=== PATIENT | male | born 1975 | race American Indian/Alaskan Native ===

== ENCOUNTER 2018-05-23 05:32 | Inpatient (IN) | payer MEDICAID ==
[2018-05-23 07:50] LABS: Calcium 8.8 mg/dL (8.4-10.2)
--- NOTE | 2018-05-23 07:54 | Emergency Department Report ---
ED General Adult HPI - General Chief complaint: Upper Respiratory Infection Stated complaint: URI/FLU Time Seen by Provider: 05/23/18 07:47 Source: patient, RN notes reviewed, old records reviewed Mode of arrival: Ambulatory Limitations: No Limitations - History of Present Illness Initial comments: This is a 42-year-old gentleman. The patient has a history of end-stage renal disease on dialysis, and was last dialyzed on Sunday. He also has a history of HIV and apparently is on highly active antiretroviral therapy. The patient is a poor historian. He knows that his personal physicians are on [place], but can't recall their name specifically. He presents to the ER today with a complaint of cough, mucus production, post tussive hemoptysis, shortness of breath, generalized weakness, malaise, fatigue, and fever at home. He denies body aches, and is not sure if he had a flu shot this year. His symptoms are constant for the past and so, they worsen with physical exertion, decreased with rest. -: Gradual Consistency: intermittent Improves with: rest Worsens with: movement Associated Symptoms: cough, loss of appetite, malaise, shortness of breath, weakness. denies: confusion, chest pain, diaphoresis, fever/chills, headaches, nausea/vomiting, rash, seizure, syncope - Related Data Home Medications Medication Instructions Recorded Confirmed Last Taken Abacavir [Ziagen TAB] 600 mg PO DAILY 04/24/18 05/23/18 Unknown Dolutegravir Sodium [Tivicay] 50 mg PO QDAY 04/24/18 05/23/18 Unknown lamiVUDine [Lamivudine] 75 mg PO QDAY 04/24/18 05/23/18 Unknown Previous Rx's Medication Instructions Recorded Last Taken Type Hydralazine HCl 100 mg PO Q8H #180 tablet 03/28/18 Unknown Rx Lisinopril [Zestril TAB] 40 mg PO QDAY #90 tablet 03/28/18 Unknown Rx NIFEdipine XL [Procardia Xl] 60 mg PO Q12HR #60 tablet 03/28/18 Unknown Rx QUEtiapine [SEROquel] 50 mg PO QHS #60 tablet 03/28/18 Unknown Rx Allergies Allergy/AdvReac Type Severity Reaction Status Date / Time No Known Allergies Allergy Verified 03/05/18 01:31 ED Review of Systems ROS: Stated complaint: URI/FLU Other details as noted in HPI Constitutional: malaise. denies: fever Eyes: denies: eye discharge ENT: congestion Respiratory: cough, wheezing Cardiovascular: denies: syncope Gastrointestinal: denies: vomiting Genitourinary: denies: dysuria Musculoskeletal: denies: arthralgia, myalgia Skin: denies: lesions Neurological: weakness Psychiatric: denies: anxiety ED Past Medical Hx - Past Medical History Previous Medical History?: Yes Hx Hypertension: Yes Hx Congestive Heart Failure: Yes Hx Diabetes: No Hx Renal Disease: Yes (HD Tues, Thurs, Sat HD) Hx Asthma: No Hx COPD: No Hx HIV: Yes Additional medical history: Dialysis access Left chest wall, - Surgical History Additional Surgical History: Dialysis Access Left Chest Wall, Fistula to left arm(not working) - Social History Smoking Status: Current Every Day Smoker Substance Use Type: Marijuana - Medications Home Medications: Home Medications Medication Instructions Recorded Confirmed Last Taken Type Hydralazine HCl 100 mg PO Q8H #180 tablet 03/28/18 05/23/18 Unknown Rx Lisinopril [Zestril TAB] 40 mg PO QDAY #90 tablet 03/28/18 05/23/18 Unknown Rx NIFEdipine XL [Procardia Xl] 60 mg PO Q12HR #60 tablet 03/28/18 05/23/18 Unknown Rx QUEtiapine [SEROquel] 50 mg PO QHS #60 tablet 03/28/18 05/23/18 Unknown Rx Abacavir [Ziagen TAB] 600 mg PO DAILY 04/24/18 05/23/18 Unknown History Dolutegravir Sodium [Tivicay] 50 mg PO QDAY 04/24/18 05/23/18 Unknown History lamiVUDine [Lamivudine] 75 mg PO QDAY 04/24/18 05/23/18 Unknown History ED Physical Exam - General Limitations: No Limitations General appearance: alert, in no apparent distress - Head Head exam: Present: atraumatic, normocephalic - Eye Eye exam: Present: normal appearance, EOMI. Absent: nystagmus - ENT ENT exam: Present: normal exam, normal orophraynx, mucous membranes moist, normal external ear exam - Neck Neck exam: Present: normal inspection, full ROM, other (5 cm of jugular venous distention noted bilaterally). Absent: tenderness, meningismus - Respiratory Respiratory exam: Present: rales, rhonchi, other (he was a left-sided hemodialysis access catheter, with no redness, pus or streaking). Absent: respiratory distress - Cardiovascular Cardiovascular Exam: Present: regular rate, normal rhythm, normal heart sounds. Absent: bradycardia, tachycardia, irregular rhythm, systolic murmur, diastolic murmur, rubs, gallop - GI/Abdominal GI/Abdominal exam: Present: soft. Absent: distended, tenderness, guarding, rebound, rigid, pulsatile mass - Rectal Rectal exam: Present: deferred - Extremities Exam Extremities exam: Present: normal inspection, full ROM, other (2+ pulses noted in the bilateral upper, lower extremities. Compartments soft. No long bony tenderness. The pelvis is stable.). Absent: joint swelling, calf tenderness - Back Exam Back exam: Present: normal inspection, full ROM. Absent: tenderness, CVA tenderness (R), paraspinal tenderness, vertebral tenderness - Neurological Exam Neurological exam: Present: alert, oriented X3, other (Extraocular movements intact. Tongue midline. No facial droop. Facial sensation intact to light touch in the V1, V2, V3 distribution bilaterally. 5 and 5 strength in 4 extremities.. Sensation is intact to light touch in 4 extremities.). Absent: motor sensory deficit - Psychiatric Psychiatric exam: Present: normal affect, normal mood - Skin Skin exam: Present: warm, dry, intact, normal color. Absent: rash ED Course Vital Signs 05/23/18 05:51 Temperature 97.8 F Pulse Rate 94 H Respiratory 20 Rate Blood Pressure 198/137 O2 Sat by Pulse 97 Oximetry ED Medical Decision Making - Lab Data Result diagrams: 05/23/18 08:01 05/23/18 07:17 Vital Signs 05/23/18 05:51 Temperature 97.8 F Pulse Rate 94 H Respiratory 20 Rate Blood Pressure 198/137 O2 Sat by Pulse 97 Oximetry Lab Results 05/23/18 Range/Units 07:17 Sodium 142 (137-145) mmol/L Potassium 4.7 (3.6-5.0) mmol/L Chloride 99.2 (98-107) mmol/L Carbon Dioxide 22 (22-30) mmol/L Anion Gap 26 mmol/L BUN 75 H (9-20) mg/dL Creatinine 15.3 H (0.8-1.5) mg/dL Estimated GFR 4 ml/min BUN/Creatinine Ratio 5 % Glucose 93 (75-100) mg/dL Calcium 8.8 (8.4-10.2) mg/dL - EKG Data -: EKG Interpreted by Me EKG shows normal: sinus rhythm Rate: normal - EKG Data When compared to previous EKG there are: no significant change Interpretation: unchanged when compared t 05/23/18 09:23 Sinus, 91 beats minute, normal axis, QTC prolonged, atrial enlargement, left ventricular hypertrophy, abnormal EKG, not consistent with ST elevation myocardial infarction, appears unchanged from prior EKG from April 2018 05/23/18 09:24 - Radiology Data Radiology results: report reviewed, image reviewed X-ray of the chest shows pulmonary vascular congestion, questionable congestive heart failure, no obvious infiltrates, left-sided hemodialysis access catheter noted. - Medical Decision Making Differential diagnosis, including not limited to: Bronchitis, bronchiectasis, pneumonia, congestive heart failure, fluid overload, hypertensive urgency, azotemia, uremia Assessment and plan: 42-year-old gentleman, HIV positive, end-stage renal disease, on dialysis, was last dialyzed on Sunday, presenting today with clinical evidence of fluid overload, including hypertension, JVD, crackles, rales, x-ray of the chest suggesting pulmonary vascular congestion, congestive heart failure, and laboratory evidence of azotemia and uremia. Clinically suspect viral syndrome and fluid overload, is afebrile in the emergency room, however given reported history of fever, we will cover empirically with ceftriaxone and azithromycin. Clinically do not suspect influenza-like illness or influenza at this time, but given that patient will require admission to the medical service, we will send a rapid flu screen to determine need for inpatient isolation precautions. At this point in time, do not clinically suspect influenza-like illness, and therefore we will withhold antiviral therapy at this time. We contacted nephrology on-call, Dr. Silva, who is going to arrange dialysis, and the hospital physician, Dr. Barron, is going to admit the patient to the medical s ervice. Critical care attestation.: If time is entered above; I have spent that time in minutes in the direct care of this critically ill patient, excluding procedure time. ED Disposition Clinical Impression: ESRD (end stage renal disease), Pulmonary edema, Dyspnea, Uncontrolled hypertension Disposition: OP ADMIT IP TO THIS HOSP Is pt being admited?: Yes Condition: Good Instructions: Pulmonary Edema (ED), Hypertension (ED) Referrals: PRIMARY CARE, [Primary Care Provider] - 3-5 Days
--- NOTE | 2018-05-23 07:56 | XRay Report ---
FINAL REPORT EXAM: XR CHEST ROUTINE 2V HISTORY: productive cough TECHNIQUE: PA and lateral views of the chest were submitted and compared to the study of 03/27/2018. FINDINGS: The heart is [id number] enlarged. The lungs are congested with diffuse interstitial prominenc e. There is thickening of the fissures. Pleural fluid is not seen. There is a double lumen venous cat heter with the tip in the right atrium. The skeletal structures do not show any acute changes. IMPRESSION: Cardiomegaly with pulmonary edema pattern. No localized infiltrates or effusions.
[2018-05-23] MEDS ORDERED: LEVAQUIN 500MG/100ML 500 MG/100 ML BAG IV ONE (07:57)
[2018-05-23] MEDS ORDERED: APRESOLINE IV ONE (07:57)
[2018-05-23] MEDS ORDERED: ZITHROMAX PO ONE (08:05)
[2018-05-23 08:17] LABS: Hematocrit 26.9 % (35.5-45.6); Hemoglobin 8.7 gm/dl (11.8-15.2); Mean Corpuscular HGB Conc 32 % (32-34); Mean Corpuscular Volume 82 fl (84-94); Platelet Count 149 K/mm3 (140-440); Red Blood Count 3.29 M/mm3 (3.65-5.03)
[2018-05-23 08:21] LABS: Red Cell Distribution Width 20.7 % (13.2-15.2)
[2018-05-23] MEDS ORDERED: ROCEPHIN/NS 1 GM/50 ML 1 GM/50 ML BAG IV ONE (08:30)
[2018-05-23 08:31] LABS: INR 0.92 (0.87-1.13)
[2018-05-23 08:32] LABS: Partial Thromboplastin Time 23.5 Sec. (24.2-36.6)
[2018-05-23] MEDS ORDERED: HYDRALAZINE HCL 100 MG PO SCH (09:00)
[2018-05-23] MEDS ORDERED: TYLENOL PO PRN (09:02)
[2018-05-23] MEDS ORDERED: ZOFRAN IV PRN (09:02)
[2018-05-23] MEDS ORDERED: SODIUM CHLORIDE FLUSH SYRINGE 10 ML IV PRN (09:02)
[2018-05-23] MEDS ORDERED: NON-FORMULARY (Dolutegravir Sodium [Tivicay] 50 MG) PO SCH (10:00)
[2018-05-23 10:18] LABS: Amphetamine Screen,Urine PRESUMPTIVE NEGATIVE; Benzodiazepines Screen,Urine PRESUMPTIVE NEGATIVE; Cannabinoid Screen,Urine PRESUMPTIVE NEGATIVE; Methadone Screen,Urine PRESUMPTIVE NEGATIVE; Opiate Screen,Urine PRESUMPTIVE NEGATIVE
[2018-05-23] MEDS ORDERED: NACL 0.9 (PRIMING MACHINE ONLY DIALYSIS) MC ONE (10:35)
[2018-05-23 10:42] LABS: Cocaine Screen,Urine PRESUMPTIVE POSITIVE
[2018-05-23] MEDS ORDERED: PROVENTIL IH PRN (11:00)
[2018-05-23 11:01] LABS: Anisocytosis 1+; Basophils % (Manual) 0 % (0.0-1.8); Hypochromasia 1+; Target Cells Few; Total Cells Counted 100
[2018-05-23 11:02] LABS: Platelet Estimate Consistent w Auto
--- NOTE | 2018-05-23 11:11 | Consultation ---
History of Present Illness - Reason for Consult Consult date: 05/23/18 end stage renal disease - History of Present Illness the patient is a 42 year old amle with ESRD on HD for the last 4 year every TTS, last treatment was Sunday, he skipped his last HD treatment because he was feeling sick with SOB and cough, in the ED, CXR was + for pulm edema and renal consult was requested for HD management Past History Past Medical History: ESRD, hypertension Medications and Allergies Allergies Allergy/AdvReac Type Severity Reaction Status Date / Time No Known Allergies Allergy Verified 03/05/18 01:31 Home Medications Medication Instructions Recorded Confirmed Last Taken Type Hydralazine HCl 100 mg PO Q8H #180 tablet 03/28/18 05/23/18 Unknown Rx Lisinopril [Zestril TAB] 40 mg PO QDAY #90 tablet 03/28/18 05/23/18 Unknown Rx NIFEdipine XL [Procardia Xl] 60 mg PO Q12HR #60 tablet 03/28/18 05/23/18 Unknown Rx QUEtiapine [SEROquel] 50 mg PO QHS #60 tablet 03/28/18 05/23/18 Unknown Rx Abacavir [Ziagen TAB] 600 mg PO DAILY 04/24/18 05/23/18 Unknown History Dolutegravir Sodium [Tivicay] 50 mg PO QDAY 04/24/18 05/23/18 Unknown History lamiVUDine [Lamivudine] 75 mg PO QDAY 04/24/18 05/23/18 Unknown History Active Meds: Active Medications Abacavir Sulfate (Ziagen) 600 mg PO DAILY [facility] Acetaminophen (Tylenol) 650 mg PO Q4H PRN PRN Reason: Pain MILD(1-3)/Fever >100.5/BURGESS Albuterol (Proventil) 2.5 mg IH Q3HRT PRN PRN Reason: Shortness Of Breath Heparin Sodium (Porcine) (Heparin) 5,000 unit SUB-Q Q12HR [facility] Hydralazine HCl (Apresoline) 100 mg PO Q8HR [facility] Lamivudine (Epivir) 75 mg PO QDAY [facility] Lisinopril (Zestril) 40 mg PO QDAY [facility] Miscellaneous Medication (Dolutegravir Sodium [Tivicay]) 50 mg PO QDAY [facility] Morphine Sulfate (Morphine) 2 mg IV Q4H PRN PRN Reason: Pain, Moderate (4-6) Nifedipine (Procardia Xl) 60 mg PO Q12HR [facility] Ondansetron HCl (Zofran) 4 mg IV Q4H PRN PRN Reason: Nausea And Vomiting Quetiapine Fumarate (Seroquel) 50 mg PO QHS [facility] Sodium Chloride (Sodium Chloride Flush Syringe 10 Ml) 10 ml IV BID [facility] Sodium Chloride (Sodium Chloride Flush Syringe 10 Ml) 10 ml IV PRN PRN PRN Reason: LINE FLUSH Review of Systems All systems: negative (SOB, cough) Exam - Vital Signs Vital signs: Vital Signs Temp Pulse Resp BP Pulse Ox 97.8 F 94 H 20 198/137 97 05/23/18 05:51 05/23/18 05:51 05/23/18 05:51 05/23/18 05:51 05/23/18 05:51 - General Appearance General appearance: well-developed, well-nourished, appears stated age EENT: ATNC, PERRL, mucous membranes moist Neck: Present: neck supple Respiratory: Ronchi, Decreased Breath Sounds Heart: regular, S1S2 Gastrointestinal: Present: normoactive bowel sounds. Absent: tenderness, distended Integumentary: no rash, warm and dry Neurologic: no focal deficit, no asterixis, alert and oriented x3 Musculoskeletal: Present: other (trace pitting edema in BLE) Psychiatric: mood/affect appropriate, cooperative Results - Lab Results 05/23/18 08:01 05/23/18 07:17 Most recent lab results Calcium 8.8 mg/dL (8.4-10.2) 05/23/18 07:17 Magnesium 2.40 mg/dL (1.7-2.3) H 05/23/18 08:01 Assessment and Plan ESRD on HD hypoxic respiratory failure secondary to pulm edema, non cardiac anemia in CKD HTN - HD today for clearance and volume removal - HD ordered again for tomorrow - will dialysis needs daily - strict I&O - daily weight - renal diet - renally dose meds
[2018-05-23] MEDS: HEPARIN SUB-Q SCH ×2 (14:01→23:16)
[2018-05-23] MEDS: APRESOLINE PO SCH ×2 (14:02→23:16)
[2018-05-23] MEDS: MORPHINE IV PRN ×2 (14:05→23:21)
[2018-05-23] MEDS: ZESTRIL PO SCH (14:05)
[2018-05-23] MEDS: PROCARDIA XL PO SCH ×2 (14:06→23:15)
[2018-05-23] MEDS: SODIUM CHLORIDE FLUSH SYRINGE 10 ML IV SCH ×2 (14:10→23:16)
[2018-05-23] MEDS: ZIAGEN PO SCH (14:23)
[2018-05-23] MEDS: TIVICAY PO SCH (14:23)
[2018-05-23] MEDS: EPIVIR PO SCH (14:24)
--- NOTE | 2018-05-23 15:50 | History and Physical Report ---
History of Present Illness Date of examination: 05/23/18 Date of admission: 05/23/18 08:05 History of present illness: Patient is a 45-year-old male with past medical history of HIV, stage renal disease on dialysis, hypertension, who has had recurrent admissions to the hospital the last 3 months he presents today with complaints of "bronchitis with pneumonia. The patient reports that he has been placed with a new roommate who has pneumonia as a result he became sick with cough and mucus production and shortness of breath. He reports because of this he could not go to dialysis of at least 5 days of dialysis. Review of records shows that this last admission started with similar he also had covered with cocaine intoxication also developed pneumonia. Patient denies any fever nausea for pituitary diarrhea. He does report productive cough. He reports generalized weakness. ROS Except as per HPI. Of systems was reviewed with the patient otherwise negative Past History Past Medical History: ESRD, hypertension Past Surgical History: Other (left AV graft placement) Social history: full code Family history: no significant family history Medications and Allergies Allergies Allergy/AdvReac Type Severity Reaction Status Date / Time No Known Allergies Allergy Verified 03/05/18 01:31 Home Medications Medication Instructions Recorded Confirmed Last Taken Type Hydralazine HCl 100 mg PO Q8H #180 tablet 03/28/18 05/23/18 Unknown Rx Lisinopril [Zestril TAB] 40 mg PO QDAY #90 tablet 03/28/18 05/23/18 Unknown Rx NIFEdipine XL [Procardia Xl] 60 mg PO Q12HR #60 tablet 03/28/18 05/23/18 Unknown Rx QUEtiapine [SEROquel] 50 mg PO QHS #60 tablet 03/28/18 05/23/18 Unknown Rx Abacavir [Ziagen TAB] 600 mg PO DAILY 04/24/18 05/23/18 Unknown History Dolutegravir Sodium [Tivicay] 50 mg PO QDAY 04/24/18 05/23/18 Unknown History lamiVUDine [Lamivudine] 75 mg PO QDAY 04/24/18 05/23/18 Unknown History Active Meds: Active Medications Abacavir Sulfate (Ziagen) 600 mg PO DAILY [facility] Last Admin: 05/23/18 14:23 Dose: 600 mg Documented by: Acetaminophen (Tylenol) 650 mg PO Q4H PRN PRN Reason: Pain MILD(1-3)/Fever >100.5/BURGESS Albuterol (Proventil) 2.5 mg IH Q3HRT PRN PRN Reason: Shortness Of Breath Heparin Sodium (Porcine) (Heparin) 5,000 unit SUB-Q Q12HR [facility] Last Admin: 05/23/18 14:01 Dose: 5,000 unit Documented by: Hydralazine HCl (Apresoline) 100 mg PO Q8HR [facility] Last Admin: 05/23/18 14:02 Dose: 100 mg Documented by: Lamivudine (Epivir) 75 mg PO QDAY [facility] Last Admin: 05/23/18 14:24 Dose: 75 mg Documented by: Lisinopril (Zestril) 40 mg PO QDAY [facility] Last Admin: 05/23/18 14:05 Dose: 40 mg Documented by: Morphine Sulfate (Morphine) 2 mg IV Q4H PRN PRN Reason: Pain, Moderate (4-6) Last Admin: 05/23/18 14:05 Dose: 2 mg Documented by: Nifedipine (Procardia Xl) 60 mg PO Q12HR [facility] Last Admin: 05/23/18 14:06 Dose: 60 mg Documented by: Ondansetron HCl (Zofran) 4 mg IV Q4H PRN PRN Reason: Nausea And Vomiting Quetiapine Fumarate (Seroquel) 50 mg PO QHS [facility] Sodium Chloride (Sodium Chloride Flush Syringe 10 Ml) 10 ml IV BID [facility] Last Admin: 05/23/18 14:10 Dose: 10 ml Documented by: Sodium Chloride (Sodium Chloride Flush Syringe 10 Ml) 10 ml IV PRN PRN PRN Reason: LINE FLUSH Exam - Physical Exam Narrative exam: VITAL SIGNS: Reviewed. GENERAL: The patient appeared well nourished and normally developed. Vital signs as documented. HEAD: No signs of head trauma. EYES: Pupils are equal. Extraocular motions intact. EARS: Hearing grossly intact. MOUTH: Oropharynx is normal. NECK: No adenopathy, no JVD. CHEST: Chest with diminshed breath sounds bilaterally. No wheezes, rales, or rhonchi. CARDIAC: Regular rate and rhythm. S1 and S2, without murmurs, gallops, or rubs. VASCULAR: left av graft. No Edema. Peripheral pulses normal and equal in all extremities. ABDOMEN: Soft, without detectable tenderness. No sign of distention. No rebound or guarding, and no masses palpated. Bowel Sounds normal. MUSCULOSKELETAL: Good range of motion of all major joints. Extremities without clubbing, cyanosis or edema. NEUROLOGIC EXAM: Alert and oriented x 3. No focal sensory or strength deficits. Speech normal. Follows commands. PSYCHIATRIC: Mood normal. SKIN: No rash or lesion - Constitutional Vitals: Temp Pulse Resp BP Pulse Ox 98.0 F 97 H 20 177/121 99 05/23/18 13:46 05/23/18 14:05 05/23/18 13:46 05/23/18 14:05 05/23/18 13:46 Results - Labs CBC & Chem 7: 05/23/18 08:01 05/23/18 07:17 Labs: Laboratory Last Values WBC 4.9 K/mm3 (4.5-11.0) 05/23/18 08:01 RBC 3.29 M/mm3 (3.65-5.03) L 05/23/18 08:01 Hgb 8.7 gm/dl (11.8-15.2) L 05/23/18 08:01 Hct 26.9 % (35.5-45.6) L 05/23/18 08:01 MCV 82 fl (84-94) L 05/23/18 08:01 MCH 27 pg (28-32) L 05/23/18 08:01 MCHC 32 % (32-34) 05/23/18 08:01 RDW 20.7 % (13.2-15.2) H 05/23/18 08:01 Plt Count 149 K/mm3 (140-440) 05/23/18 08:01 Add Manual Diff Complete 05/23/18 08:01 Total Counted 100 05/23/18 08:01 Seg Neuts % (Manual) 88.0 % (40.0-70.0) H 05/23/18 08:01 Band Neutrophils % 0 % 05/23/18 08:01 Lymphocytes % (Manual) 7.0 % (13.4-35.0) L 05/23/18 08:01 Reactive Lymphs % (Man) 0 % 05/23/18 08:01 Monocytes % (Manual) 4.0 % (0.0-7.3) 05/23/18 08:01 Eosinophils % (Manual) 1.0 % (0.0-4.3) 05/23/18 08:01 Basophils % (Manual) 0 % (0.0-1.8) 05/23/18 08:01 Metamyelocytes % 0 % 05/23/18 08:01 Myelocytes % 0 % 05/23/18 08:01 Promyelocytes % 0 % 05/23/18 08:01 Blast Cells % 0 % 05/23/18 08:01 Nucleated RBC % Not Reportable 05/23/18 08:01 Seg Neutrophils # Man 4.3 K/mm3 (1.8-7.7) 05/23/18 08:01 Band Neutrophils # 0.0 K/mm3 05/23/18 08:01 Lymphocytes # (Manual) 0.3 K/mm3 (1.2-5.4) L 05/23/18 08:01 Abs React Lymphs (Man) 0.0 K/mm3 05/23/18 08:01 Monocytes # (Manual) 0.2 K/mm3 (0.0-0.8) 05/23/18 08:01 Eosinophils # (Manual) 0.0 K/mm3 (0.0-0.4) 05/23/18 08:01 Basophils # (Manual) 0.0 K/mm3 (0.0-0.1) 05/23/18 08:01 Metamyelocytes # 0.0 K/mm3 05/23/18 08:01 Myelocytes # 0.0 K/mm3 05/23/18 08:01 Promyelocytes # 0.0 K/mm3 05/23/18 08:01 Blast Cells # 0.0 K/mm3 05/23/18 08:01 WBC Morphology Not Reportable 05/23/18 08:01 Hypersegmented Neuts Not Reportable 05/23/18 08:01 Hyposegmented Neuts Not Reportable 05/23/18 08:01 Hypogranular Neuts Not Reportable 05/23/18 08:01 Smudge Cells Not Reportable 05/23/18 08:01 Toxic Granulation Not Reportable 05/23/18 08:01 Toxic Vacuolation Not Reportable 05/23/18 08:01 Dohle Bodies Not Reportable 05/23/18 08:01 Pelger-Huet Anomaly Not Reportable 05/23/18 08:01 Toni Rods Not Reportable 05/23/18 08:01 Platelet Estimate Consistent w auto 05/23/18 08:01 Clumped Platelets Not Reportable 05/23/18 08:01 Plt Clumps, EDTA Not Reportable 05/23/18 08:01 Large Platelets Not Reportable 05/23/18 08:01 Giant Platelets Not Reportable 05/23/18 08:01 Platelet Satelliting Not Reportable 05/23/18 08:01 Plt Morphology Comment Not Reportable 05/23/18 08:01 RBC Morphology Not Reportable 05/23/18 08:01 Dimorphic RBCs Not Reportable 05/23/18 08:01 Polychromasia Not Reportable 05/23/18 08:01 Hypochromasia 1+ 05/23/18 08:01 Poikilocytosis Not Reportable 05/23/18 08:01 Anisocytosis 1+ 05/23/18 08:01 Microcytosis Not Reportable 05/23/18 08:01 Macrocytosis Not Reportable 05/23/18 08:01 Spherocytes Not Reportable 05/23/18 08:01 Pappenheimer Bodies Not Reportable 05/23/18 08:01 Sickle Cells Not Reportable 05/23/18 08:01 Target Cells Few 05/23/18 08:01 Tear Drop Cells Not Reportable 05/23/18 08:01 Ovalocytes Not Reportable 05/23/18 08:01 Helmet Cells Not Reportable 05/23/18 08:01 [place] Bodies Not Reportable 05/23/18 08:01 [place] Rings Not Reportable 05/23/18 08:01 [place] Cells Not Reportable 05/23/18 08:01 Bite Cells Not Reportable 05/23/18 08:01 Crenated Cell Not Reportable 05/23/18 08:01 Elliptocytes Not Reportable 05/23/18 08:01 Acanthocytes (Spur) Not Reportable 05/23/18 08:01 Rouleaux Not Reportable 05/23/18 08:01 Hemoglobin C Crystals Not Reportable 05/23/18 08:01 Schistocytes Not Reportable 05/23/18 08:01 Malaria parasites Not Reportable 05/23/18 08:01 [place] Bodies Not Reportable 05/23/18 08:01 Hem Pathologist Commnt No 05/23/18 08:01 PT 12.8 Sec. (12.2-14.9) 05/23/18 08:01 INR 0.92 (0.87-1.13) 05/23/18 08:01 APTT 23.5 Sec. (24.2-36.6) L 05/23/18 08:01 Sodium 142 mmol/L (137-145) 05/23/18 07:17 Potassium 4.7 mmol/L (3.6-5.0) 05/23/18 07:17 Chloride 99.2 mmol/L (98-107) 05/23/18 07:17 Carbon Dioxide 22 mmol/L (22-30) 05/23/18 07:17 Anion Gap 26 mmol/L 05/23/18 07:17 BUN 75 mg/dL (9-20) H 05/23/18 07:17 Creatinine 15.3 mg/dL (0.8-1.5) H 05/23/18 07:17 Estimated GFR 4 ml/min 05/23/18 07:17 BUN/Creatinine Ratio 5 % 05/23/18 07:17 Glucose 93 mg/dL (75-100) 05/23/18 07:17 Lactic Acid 0.60 mmol/L (0.7-2.0) L 05/23/18 08:01 Calcium 8.8 mg/dL (8.4-10.2) 05/23/18 07:17 Magnesium 2.40 mg/dL (1.7-2.3) H 05/23/18 08:01 NT-Pro-B Natriuret Pep 48935 pg/mL (0-450) H 05/23/18 08:01 Urine Opiates Screen Presumptive negative 05/23/18 09:55 Urine Methadone Screen Presumptive negative 05/23/18 09:55 Ur Barbiturates Screen Presumptive negative 05/23/18 09:55 Ur Phencyclidine Scrn Presumptive negative 05/23/18 09:55 Ur Amphetamines Screen Presumptive negative 05/23/18 09:55 U Benzodiazepines Scrn Presumptive negative 05/23/18 09:55 Urine Cocaine Screen Presumptive positive 05/23/18 09:55 U Marijuana (THC) Screen Presumptive negative 05/23/18 09:55 Drugs of Abuse Note Disclamer 05/23/18 09:55 Influenza A (Rapid) Negative (Negative) 05/23/18 Unknown Influenza B (Rapid) Negative (Negative) 05/23/18 Unknown - Imaging and Cardiology Chest x-ray: image reviewed (congestion pulmonary vascularture) Assessment and Plan Assessment and plan: Patient is a 45-year-old male with past medical history of HIV, stage renal disease on dialysis, hypertension, who has had recurrent admissions to the hospital the last 3 months he presents today with complaints of "bronchitis with pneumonia. The patient reports that he has been placed with a new roommate who has pneumonia as a result he became sick with cough and mucus production and shortness of breath. He reports because of this he could not go to dialysis of at least 5 days of dialysis. Review of records shows that this last admission started with similar he also had covered with cocaine intoxication also developed pneumonia. Patient denies any fever nausea for pituitary diarrhea. He does report productive cough. He reports generalized weakness. ESRD Acute Respiratory failure with Hypoxia secondary to volume overload Hypertensive Urgency Cocain dependance HIV Pulmonary Edema/?Pneumonia Anemia of chronic Disease Plan Admit to Med surgery Restart home meds Nephrology consult Case management consult Hold off on further antibiotics and see how patient does with dialysis Counselling about substance abuse provided. Patient verbalized understanding 15 mins spent PRN NEBS DVT/GI prophy Plan discussed with patient and nursing staff. Advance Directives: Yes Plan of care discussed with patient/family: Yes
[2018-05-23] MEDS ORDERED: CEPHULAC PO PRN (16:55)
[2018-05-23] MEDS ORDERED: FLEET PR ONE (18:14)
[2018-05-23] MEDS: COLACE PO SCH (23:15)
[2018-05-24 05:07] LABS: Hemoglobin 10.4 gm/dl (11.8-15.2); Mean Corpuscular HGB Conc 33 % (32-34); Mean Corpuscular Volume 81 fl (84-94); Platelet Count 161 K/mm3 (140-440); Red Blood Count 3.95 M/mm3 (3.65-5.03)
[2018-05-24 05:18] LABS: Red Cell Distribution Width 20.2 % (13.2-15.2)
[2018-05-24 05:21] LABS: Calcium 8.9 mg/dL (8.4-10.2)
[2018-05-24] MEDS: APRESOLINE PO SCH ×3 (05:46→22:48)
[2018-05-24 06:37] LABS: Basophils % (Manual) 0 % (0.0-1.8); Total Cells Counted 100
[2018-05-24 06:38] LABS: Anisocytosis 1+; Hypochromasia 1+; Platelet Estimate Cons; Target Cells Few
[2018-05-24] MEDS: PROCARDIA XL PO SCH ×2 (09:22→22:48)
[2018-05-24] MEDS: ZESTRIL PO SCH (09:22)
--- NOTE | 2018-05-24 11:00 | Progress Note ---
Assessment and Plan ESRD on HD hypoxic respiratory failure secondary to pulm edema, non cardiac anemia in CKD HTN - HD again today for clearance and volume removal - will dialysis needs daily - strict I&O - daily weight - renal diet - renally dose meds Subjective Date of service: 05/24/18 Principal diagnosis: ESRD on HD Interval history: tolerated dialysis well yesterday, breathing better Objective - Vital Signs Vital signs: Vital Signs - 12hr 05/23/18 05/23/18 05/23/18 23:21 23:50 23:51 Temperature Pulse Rate Respiratory 20 20 Rate Respiratory 20 Rate [Abdomen] Respiratory 20 Rate [ Generalized] Blood Pressure O2 Sat by Pulse Oximetry 05/24/18 05/24/18 05/24/18 00:13 08:08 09:22 Temperature 98.3 F Pulse Rate 111 H 107 H Respiratory 20 18 Rate Respiratory Rate [Abdomen] Respiratory Rate [ Generalized] Blood Pressure 136/81 135/103 O2 Sat by Pulse 91 Oximetry - General Appearance General appearance: well-developed, well-nourished EENT: ATNC, PERRL, mucous membranes moist Neck: no JVD, no carotid bruit Respiratory: Present: Clear to Ascultation. Absent: Rales, Ronchi Cardiology: regular, S1S2 Gastrointestinal: normoactive bowel sounds Integumentary: no rash, warm and dry Neurologic: no focal deficit, no asterixis, alert and oriented x3 Musculoskeletal: other (trace pitting edema in BLE) Psychiatric: mood/affect appropriate, cooperative - Lab 05/24/18 04:34 05/24/18 04:34 Most recent lab results Calcium 8.9 mg/dL (8.4-10.2) 05/24/18 04:34 Magnesium 2.40 mg/dL (1.7-2.3) H 05/23/18 08:01 Medications & Allergies - Medications Allergies/Adverse Reactions: Allergies No Known Allergies Allergy (Verified 03/05/18 01:31) Home Medications: Home Medications Medication Instructions Recorded Confirmed Last Taken Type Hydralazine HCl 100 mg PO Q8H #180 tablet 03/28/18 05/23/18 Unknown Rx Lisinopril [Zestril TAB] 40 mg PO QDAY #90 tablet 03/28/18 05/23/18 Unknown Rx NIFEdipine XL [Procardia Xl] 60 mg PO Q12HR #60 tablet 03/28/18 05/23/18 Unknown Rx QUEtiapine [SEROquel] 50 mg PO QHS #60 tablet 03/28/18 05/23/18 Unknown Rx Abacavir [Ziagen TAB] 600 mg PO DAILY 04/24/18 05/23/18 Unknown History Dolutegravir Sodium [Tivicay] 50 mg PO QDAY 04/24/18 05/23/18 Unknown History lamiVUDine [Lamivudine] 75 mg PO QDAY 04/24/18 05/23/18 Unknown History Active Medications: Generic Name Dose Route Start Last Admin Trade Name Freq PRN Reason Stop Dose Admin Abacavir Sulfate 600 mg 05/23/18 11:00 05/23/18 14:23 Ziagen PO 600 mg DAILY MAICO Administration Acetaminophen 650 mg 05/23/18 09:02 Tylenol PO Q4H PRN Pain MILD(1-3)/Fever >100.5/BURGESS Albuterol 2.5 mg 05/23/18 11:00 Proventil IH Q3HRT PRN Shortness Of Breath Docusate Sodium 100 mg 05/23/18 22:00 05/23/18 23:15 Colace PO Not Given BID MAICO Heparin Sodium (Porcine) 5,000 unit 05/23/18 11:00 05/23/18 23:16 Heparin SUB-Q Not Given Q12HR MAICO Hydralazine HCl 100 mg 05/23/18 14:00 05/24/18 05:46 Apresoline PO 100 mg Q8HR MAICO Administration Lactulose 20 gm 05/23/18 16:55 05/23/18 17:36 Cephulac PO 20 gm QDAY PRN Administration Constipation Lamivudine 75 mg 05/23/18 11:00 05/23/18 14:24 Epivir PO 75 mg QDAY MAICO Administration Lisinopril 40 mg 05/23/18 11:00 05/24/18 09:22 Zestril PO 40 mg QDAY MAICO Administration Morphine Sulfate 2 mg 05/23/18 09:02 05/23/18 23:21 Morphine IV 2 mg Q4H PRN Administration Pain, Moderate (4-6) Nifedipine 60 mg 05/23/18 11:00 05/24/18 09:22 Procardia Xl PO 60 mg Q12HR MAICO Administration Ondansetron HCl 4 mg 05/23/18 09:02 Zofran IV Q4H PRN Nausea And Vomiting Quetiapine Fumarate 50 mg 05/23/18 22:00 05/23/18 23:15 Seroquel PO 50 mg QHS MAICO Administration Sodium Chloride 10 ml 05/23/18 11:00 05/23/18 23:16 Sodium Chloride Flush Syringe 10 Ml IV Not Given BID MAICO Sodium Chloride 10 ml 05/23/18 09:02 Sodium Chloride Flush Syringe 10 Ml IV PRN PRN LINE FLUSH
[2018-05-24] MEDS: MORPHINE IV PRN ×3 (12:41→22:47)
[2018-05-24] MEDS: COLACE PO SCH ×3 (13:02→22:18)
[2018-05-24] MEDS: HEPARIN SUB-Q SCH ×2 (13:02→22:48)
[2018-05-24] MEDS: EPIVIR PO SCH (13:02)
[2018-05-24] MEDS: TIVICAY PO SCH (13:03)
[2018-05-24] MEDS: ZIAGEN PO SCH (13:03)
[2018-05-24] MEDS: SODIUM CHLORIDE FLUSH SYRINGE 10 ML IV SCH ×2 (13:04→22:52)
[2018-05-24] MEDS ORDERED: VANCOMYCIN PHARMACY TO DOSE IV SCH (14:00)
[2018-05-24] MEDS ORDERED: NACL 0.9 (PRIMING MACHINE ONLY DIALYSIS) MC ONE (16:33)
[2018-05-24] MEDS ORDERED: VANCOMYCIN 1,250 MG in NACL 0.9% 250ML 250 ML IV ONE (18:00)
--- NOTE | 2018-05-24 20:43 | Progress Note ---
Assessment and Plan Assessment and plan: Patient is a 45-year-old male with past medical history of HIV, stage renal disease on dialysis, hypertension, who has had recurrent admissions to the hospital the last 3 months he presents today with complaints of "bronchitis with pneumonia. The patient reports that he has been placed with a new roommate who has pneumonia as a result he became sick with cough and mucus production and shortness of breath. He reports because of this he could not go to dialysis of at least 5 days of dialysis. Review of records shows that this last admission started with similar he also had covered with cocaine intoxication also developed pneumonia. Patient denies any fever nausea for pituitary diarrhea. He does report productive cough. He reports generalized weakness. ESRD Acute Respiratory failure with Hypoxia secondary to volume overload Hypertensive Urgency Cocain dependance HIV Pulmonary Edema/?Pneumonia Anemia of chronic Disease Plan Continue supportive care NO fever noted. patient started on vancomycin due to positive BCx 1/2 bottles. Likely contaminant but will await final culture Nephrology input noted Case management consult Hold off on further antibiotics and see how patient does with dialysis Counselling about substance abuse provided. Patient verbalized understanding 15 mins spent PRN NEBS DVT/GI prophy Plan discussed with patient and nursing staff. History Interval history: Patient seen and examined, clinically improving with dialysis. No new complaints. Hospitalist Physical - Physical exam Narrative exam: VITAL SIGNS: Reviewed. GENERAL: The patient appeared well nourished and normally developed. Vital signs as documented. HEAD: No signs of head trauma. EYES: Pupils are equal. Extraocular motions intact. EARS: Hearing grossly intact. MOUTH: Oropharynx is normal. NECK: No adenopathy, no JVD. CHEST: Chest with diminshed breath sounds bilaterally. No wheezes, rales, or rhonchi. CARDIAC: Regular rate and rhythm. S1 and S2, without murmurs, gallops, or rubs. VASCULAR: left av graft. No Edema. Peripheral pulses normal and equal in all extremities. ABDOMEN: Soft, without detectable tenderness. No sign of distention. No rebound or guarding, and no masses palpated. Bowel Sounds normal. MUSCULOSKELETAL: Good range of motion of all major joints. Extremities without clubbing, cyanosis or edema. NEUROLOGIC EXAM: Alert and oriented x 3. No focal sensory or strength deficits. Speech normal. Follows commands. PSYCHIATRIC: Mood normal. SKIN: No rash or lesion - Constitutional Vitals: Temp Pulse Resp BP Pulse Ox 98.6 F 110 H 20 148/102 97 05/24/18 17:58 05/24/18 17:58 05/24/18 17:58 05/24/18 17:58 05/24/18 19:54 Results - Labs CBC & Chem 7: 05/24/18 04:34 05/24/18 04:34 Labs: Laboratory Last Values WBC 4.7 K/mm3 (4.5-11.0) 05/24/18 04:34 RBC 3.95 M/mm3 (3.65-5.03) 05/24/18 04:34 Hgb 10.4 gm/dl (11.8-15.2) L 05/24/18 04:34 Hct 32.0 % (35.5-45.6) L 05/24/18 04:34 MCV 81 fl (84-94) L 05/24/18 04:34 MCH 26 pg (28-32) L 05/24/18 04:34 MCHC 33 % (32-34) 05/24/18 04:34 RDW 20.2 % (13.2-15.2) H 05/24/18 04:34 Plt Count 161 K/mm3 (140-440) 05/24/18 04:34 Add Manual Diff Complete 05/24/18 04:34 Total Counted 100 05/24/18 04:34 Seg Neuts % (Manual) 75.0 % (40.0-70.0) H 05/24/18 04:34 Band Neutrophils % 1.0 % 05/24/18 04:34 Lymphocytes % (Manual) 19.0 % (13.4-35.0) 05/24/18 04:34 Reactive Lymphs % (Man) 1.0 % 05/24/18 04:34 Monocytes % (Manual) 3.0 % (0.0-7.3) 05/24/18 04:34 Eosinophils % (Manual) 1.0 % (0.0-4.3) 05/24/18 04:34 Basophils % (Manual) 0 % (0.0-1.8) 05/24/18 04:34 Metamyelocytes % 0 % 05/24/18 04:34 Myelocytes % 0 % 05/24/18 04:34 Promyelocytes % 0 % 05/24/18 04:34 Blast Cells % 0 % 05/24/18 04:34 Nucleated RBC % Not Reportable 05/24/18 04:34 Seg Neutrophils # Man 3.5 K/mm3 (1.8-7.7) 05/24/18 04:34 Band Neutrophils # 0.0 K/mm3 05/24/18 04:34 Lymphocytes # (Manual) 0.9 K/mm3 (1.2-5.4) L 05/24/18 04:34 Abs React Lymphs (Man) 0.0 K/mm3 05/24/18 04:34 Monocytes # (Manual) 0.1 K/mm3 (0.0-0.8) 05/24/18 04:34 Eosinophils # (Manual) 0.0 K/mm3 (0.0-0.4) 05/24/18 04:34 Basophils # (Manual) 0.0 K/mm3 (0.0-0.1) 05/24/18 04:34 Metamyelocytes # 0.0 K/mm3 05/24/18 04:34 Myelocytes # 0.0 K/mm3 05/24/18 04:34 Promyelocytes # 0.0 K/mm3 05/24/18 04:34 Blast Cells # 0.0 K/mm3 05/24/18 04:34 WBC Morphology Not Reportable 05/24/18 04:34 Hypersegmented Neuts Not Reportable 05/24/18 04:34 Hyposegmented Neuts Not Reportable 05/24/18 04:34 Hypogranular Neuts Not Reportable 05/24/18 04:34 Smudge Cells Not Reportable 05/24/18 04:34 Toxic Granulation Not Reportable 05/24/18 04:34 Toxic Vacuolation Not Reportable 05/24/18 04:34 Dohle Bodies Not Reportable 05/24/18 04:34 Pelger-Huet Anomaly Not Reportable 05/24/18 04:34 Toni Rods Not Reportable 05/24/18 04:34 Platelet Estimate Cons 05/24/18 04:34 Clumped Platelets Not Reportable 05/24/18 04:34 Plt Clumps, EDTA Not Reportable 05/24/18 04:34 Large Platelets Not Reportable 05/24/18 04:34 Giant Platelets Not Reportable 05/24/18 04:34 Platelet Satelliting Not Reportable 05/24/18 04:34 Plt Morphology Comment Not Reportable 05/24/18 04:34 RBC Morphology Not Reportable 05/24/18 04:34 Dimorphic RBCs Not Reportable 05/24/18 04:34 Polychromasia Not Reportable 05/24/18 04:34 Hypochromasia 1+ 05/24/18 04:34 Poikilocytosis Not Reportable 05/24/18 04:34 Anisocytosis 1+ 05/24/18 04:34 Microcytosis Not Reportable 05/24/18 04:34 Macrocytosis Not Reportable 05/24/18 04:34 Spherocytes Not Reportable 05/24/18 04:34 Pappenheimer Bodies Not Reportable 05/24/18 04:34 Sickle Cells Not Reportable 05/24/18 04:34 Target Cells Few 05/24/18 04:34 Tear Drop Cells Not Reportable 05/24/18 04:34 Ovalocytes Not Reportable 05/24/18 04:34 Helmet Cells Not Reportable 05/24/18 04:34 B[place] Bodies Not Reportable 05/24/18 04:34 Sweetser Rings Not Reportable 05/24/18 04:34 Freddy Cells Not Reportable 05/24/18 04:34 Bite Cells Not Reportable 05/24/18 04:34 Crenated Cell Not Reportable 05/24/18 04:34 Elliptocytes Not Reportable 05/24/18 04:34 Acanthocytes (Spur) Not Reportable 05/24/18 04:34 Rouleaux Not Reportable 05/24/18 04:34 Hemoglobin C Crystals Not Reportable 05/24/18 04:34 Schistocytes Not Reportable 05/24/18 04:34 Malaria parasites Not Reportable 05/24/18 04:34 Lebron Bodies Not Reportable 05/24/18 04:34 Hem Pathologist Commnt No 05/24/18 04:34 PT 12.8 Sec. (12.2-14.9) 05/23/18 08:01 INR 0.92 (0.87-1.13) 05/23/18 08:01 APTT 23.5 Sec. (24.2-36.6) L 05/23/18 08:01 Sodium 139 mmol/L (137-145) 05/24/18 04:34 Potassium 3.7 mmol/L (3.6-5.0) D 05/24/18 04:34 Chloride 95.5 mmol/L (98-107) L 05/24/18 04:34 Carbon Dioxide 25 mmol/L (22-30) 05/24/18 04:34 Anion Gap 22 mmol/L 05/24/18 04:34 BUN 33 mg/dL (9-20) H 05/24/18 04:34 Creatinine 9.5 mg/dL (0.8-1.5) H 05/24/18 04:34 Estimated GFR 7 ml/min 05/24/18 04:34 BUN/Creatinine Ratio 3 % 05/24/18 04:34 Glucose 96 mg/dL (75-100) 05/24/18 04:34 Lactic Acid 0.60 mmol/L (0.7-2.0) L 05/23/18 08:01 Calcium 8.9 mg/dL (8.4-10.2) 05/24/18 04:34 Magnesium 2.40 mg/dL (1.7-2.3) H 05/23/18 08:01 NT-Pro-B Natriuret Pep 06883 pg/mL (0-450) H 05/23/18 08:01 Urine Opiates Screen Presumptive negative 05/23/18 09:55 Urine Methadone Screen Presumptive negative 05/23/18 09:55 Ur Barbiturates Screen Presumptive negative 05/23/18 09:55 Ur Phencyclidine Scrn Presumptive negative 05/23/18 09:55 Ur Amphetamines Screen Presumptive negative 05/23/18 09:55 U Benzodiazepines Scrn Presumptive negative 05/23/18 09:55 Urine Cocaine Screen Presumptive positive 05/23/18 09:55 U Marijuana (THC) Screen Presumptive negative 05/23/18 09:55 Drugs of Abuse Note Disclamer 05/23/18 09:55 Influenza A (Rapid) Negative (Negative) 05/23/18 Unknown Influenza B (Rapid) Negative (Negative) 05/23/18 Unknown Nutrition/Malnutrition Assess - Dietary Evaluation Nutrition/Malnutrition Findings: Nutrition Notes Start: 05/24/18 13:28 Freq: Status: Active Protocol: Document 05/24/18 13:28 OH (Rec: 05/24/18 13:41 OH [id number]) Nutrition Notes Initial or Follow up Assessment Current Diagnoses CKD (stage V CKD) Hypertension Other Pertinent Diagnosis HIV; hx substance abuse; Current Diet RENAL Labs/Tests BUN 33 Cr 9.5 Medications HEPARIN Height 5 ft 11 in Weight 68.5 kg [place] Body Weight (lbs) 172.0 BMI 21.0 Intake Prior to Admission Fair Weight Status Appropriate Subjective/Other Information Consulted for low BMI. Pt. is 5' 11" and 68.5 kgs with a BMI of 21. Pt. doesn't meet qualifications for low BMI. Pt . lying in bed. Pt. is requesting nepro. When asked if pt had any questions about his renal dietary restrictions he responded with "no." Percent of energy/protein needs met: >50/50% Burn Absent Trauma Absent GI Symptoms None Current % PO FAIR (50-74%) #1 Nutrition Diagnoses Inadequate oral intake Etiology poor appetite As Evidenced by Signs and Symptoms po consumption of <75% kcals/ protein requirements Diagnosis Progress(for reassessment Continues documentation) Is patient on ventilator? No Is Patient Ambulatory and/or Out of Bed Yes REE-(Yulee-St. Jeor-ambulatory/OOB) [ 2095.769 [id number]] Calculation Used for Recommendations Yulee-St Jeor Additional Notes FLUID: 1 L/day or per MD PROTEIN: 1.2-1.4 G/KG (82-96 g /day) Nutrition Intervention Change Diet Order: Cont renal diet Add Supplement/Snack (indicate name/kcal nepro BID /protein ) Provides kCal: 850 Provides Protein (gm) 38 Goal #1 PO INTAKE to exceed 75% for kcals/protein Anticipated Discharge Needs: renal/fluid/na education Follow-Up By: 05/28/18 Additional Comments f/u: po intake; initiation/ tolerance nepro
[2018-05-25] MEDS: MORPHINE IV PRN ×2 (06:16→10:54)
[2018-05-25] MEDS: APRESOLINE PO SCH ×2 (06:19→14:41)
[2018-05-25] MEDS: PROCARDIA XL PO SCH (10:49)
[2018-05-25] MEDS: ZIAGEN PO SCH (10:49)
[2018-05-25] MEDS: EPIVIR PO SCH (10:50)
[2018-05-25] MEDS: COLACE PO SCH (10:50)
[2018-05-25] MEDS: ZESTRIL PO SCH (10:50)
[2018-05-25] MEDS: HEPARIN SUB-Q SCH (10:51)
[2018-05-25] MEDS: SODIUM CHLORIDE FLUSH SYRINGE 10 ML IV SCH (10:55)
[2018-05-25] MEDS: TIVICAY PO SCH (13:26)
--- NOTE | 2018-05-25 14:47 | Progress Note ---
Assessment and Plan ESRD on HD Acute hypoxic respiratory failure secondary to pulmonary edema, non cardiac Anemia in CKD Essential Hypertension: Plan: - S/p HD yesterday for UF and clearance, UF removed 1800 ml - I spoke with dialysis nurse about HD orders, dialysis mentioned pt came off HD about 1 hr early yesterday - HD again today for gentle UF and clearance - Pt agreeable to HD today - Ok for pt to be d/c home from nephrology standpoint after HD today if medically cleared - Assess need for HD on daily basis - Renal diet - Renally dose meds - This pt undergoes outpatient HD at [facility] every TTS - Renal plan d/w Dr Cooper Subjective Date of service: 05/25/18 Principal diagnosis: ESRD on HD Interval history: Pt seen in bed, c/o some shortness of breath, no acute distress. No family at bedside Objective - Vital Signs Vital signs: Vital Signs - 12hr 05/25/18 05/25/18 05:51 11:32 Temperature 98.4 F 98.2 F Pulse Rate 111 H 104 H Respiratory 20 18 Rate Blood Pressure 114/81 118/74 O2 Sat by Pulse 95 94 Oximetry - General Appearance General appearance: well-developed EENT: ATNC Neck: no JVD Respiratory: Present: Decreased Breath Sounds Cardiology: regular, S1S2, other (ACCESS: Right IJ Perm Catheter intact) Gastrointestinal: normoactive bowel sounds, no tenderness Integumentary: warm and dry Neurologic: alert and oriented x3 Musculoskeletal: other (trace edema to BLE) Psychiatric: cooperative - Lab 05/24/18 04:34 05/24/18 04:34 Most recent lab results Calcium 8.9 mg/dL (8.4-10.2) 05/24/18 04:34 Magnesium 2.40 mg/dL (1.7-2.3) H 05/23/18 08:01 Medications & Allergies - Medications Allergies/Adverse Reactions: Allergies No Known Allergies Allergy (Verified 03/05/18 01:31) Home Medications: Home Medications Medication Instructions Recorded Confirmed Last Taken Type Lisinopril [Zestril TAB] 40 mg PO QDAY #90 tablet 03/28/18 05/23/18 Unknown Rx NIFEdipine XL [Procardia Xl] 60 mg PO Q12HR #60 tablet 03/28/18 05/23/18 Unknown Rx QUEtiapine [SEROquel] 50 mg PO QHS #60 tablet 03/28/18 05/23/18 Unknown Rx lamiVUDine [Lamivudine] 75 mg PO QDAY 04/24/18 05/23/18 Unknown History Abacavir [Ziagen TAB] 600 mg PO DAILY #30 tablet 05/25/18 Unknown Rx Dolutegravir Sodium [Tivicay] 50 mg PO QDAY #30 tablet 05/25/18 Unknown Rx traMADol [Ultram 50 MG tab] 50 mg PO Q6HR PRN #7 tablet 05/25/18 Unknown Rx Active Medications: Generic Name Dose Route Start Last Admin Trade Name Freq PRN Reason Stop Dose Admin Abacavir Sulfate 600 mg 05/23/18 11:00 05/25/18 10:49 Ziagen PO 600 mg DAILY MAICO Administration Acetaminophen 650 mg 05/23/18 09:02 Tylenol PO Q4H PRN Pain MILD(1-3)/Fever >100.5/BURGESS Albuterol 2.5 mg 05/23/18 11:00 Proventil IH Q3HRT PRN Shortness Of Breath Docusate Sodium 100 mg 05/23/18 22:00 05/25/18 10:50 Colace PO 100 mg BID MAICO Administration Heparin Sodium (Porcine) 5,000 unit 05/23/18 11:00 05/25/18 10:51 Heparin SUB-Q 5,000 unit Q12HR MAICO Administration Hydralazine HCl 100 mg 05/23/18 14:00 05/25/18 14:41 Apresoline PO 100 mg Q8HR MAICO Administration Lactulose 20 gm 05/23/18 16:55 05/23/18 17:36 Cephulac PO 20 gm QDAY PRN Administration Constipation Lamivudine 75 mg 05/23/18 11:00 05/25/18 10:50 Epivir PO 75 mg QDAY MAICO Administration Lisinopril 40 mg 05/23/18 11:00 05/25/18 10:50 Zestril PO 40 mg QDAY MAICO Administration Morphine Sulfate 2 mg 05/23/18 09:02 05/25/18 10:54 Morphine IV 2 mg Q4H PRN Administration Pain, Moderate (4-6) Nifedipine 60 mg 05/23/18 11:00 05/25/18 10:49 Procardia Xl PO 60 mg Q12HR MAICO Administration Ondansetron HCl 4 mg 05/23/18 09:02 Zofran IV Q4H PRN Nausea And Vomiting Quetiapine Fumarate 50 mg 05/23/18 22:00 05/24/18 22:47 Seroquel PO 50 mg QHS MAICO Administration Sodium Chloride 10 ml 05/23/18 11:00 05/25/18 10:55 Sodium Chloride Flush Syringe 10 Ml IV 10 ml BID MAICO Administration Sodium Chloride 10 ml 05/23/18 09:02 Sodium Chloride Flush Syringe 10 Ml IV PRN PRN LINE FLUSH
--- NOTE | 2018-05-25 15:30 | Discharge Summary ---
Providers - Providers Date of Admission: 05/23/18 08:05 Date of discharge: 05/25/18 Attending physician: CAROLINE CRAIN 05/23/18 07:58 Consult to Physician [CONS] Urgent Comment: DR PERKINS NOTIFIED [phone] Consulting Provider: ALLISON NEWTON Physician Instructions: Reason For Exam: esrd 05/23/18 09:03 Consult to Case Management [CONS] Routine Services Needed at Discharge: International Marketing Specialist Notified:: COPY GIVEN TO CM Additional Physician Instructions: recurrent admissions in the last 3 months Primary care physician: TERRITORY SUPERVISOR Hospitalization Condition: Good Hospital course: Patient is a 45-year-old male with past medical history of HIV, stage renal disease on dialysis, hypertension, who has had recurrent admissions to the hospital the last 3 months he presents today with complaints of "bronchitis with pneumonia. The patient reports that he has been placed with a new roommate who has pneumonia as a result he became sick with cough and mucus production and shortness of breath. He reports because of this he could not go to dialysis of at least 5 days of dialysis. Review of records shows that this last admission s tarted with similar he also had covered with cocaine intoxication also developed pneumonia. Patient denies any fever nausea for pituitary diarrhea. He does report productive cough. He reports generalized weakness. ESRD Acute Respiratory failure with Hypoxia secondary to volume overload Hypertensive Urgency Cocain dependance HIV Pulmonary Edema/?Pneumonia Anemia of chronic Disease Plan Continue supportive care NO fever noted. patient started on vancomycin due to positive BCx 1/2 bottles. Likely contaminant but will await final culture Nephrology input noted Case management consult Hold off on further antibiotics and see how patient does with dialysis Counselling about substance abuse provided. Patient verbalized understanding 15 mins spent PRN NEBS DVT/GI prophy Plan discussed with patient and nursing staff. Disposition: DC-01 TO HOME OR SELFCARE Time spent for discharge: 34 minutes Core Measure Documentation - Palliative Care Palliative Care/ Comfort Measures: Not Applicable - Core Measures Any of the following diagnoses?: history only Exam - Constitutional Vitals: Temp Pulse Resp BP Pulse Ox 98.2 F 104 H 18 118/74 94 05/25/18 11:32 05/25/18 11:32 05/25/18 11:32 05/25/18 11:32 05/25/18 11:32 General appearance: Present: no acute distress, well-nourished - EENT Eyes: Present: PERRL ENT: hearing intact, clear oral mucosa - Neck Neck: Present: supple, normal ROM - Respiratory Respiratory effort: normal Respiratory: bilateral: CTA - Cardiovascular Heart Sounds: Present: S1 & S2. Absent: rub, click - Extremities Extremities: pulses symmetrical, No edema Peripheral Pulses: within normal limits - Abdominal General gastrointestinal: Present: soft, non-tender, non-distended, normal bowel sounds - Integumentary Integumentary: Present: clear, warm, dry - Musculoskeletal Musculoskeletal: gait normal, strength equal bilaterally - Psychiatric Psychiatric: appropriate mood/affect, intact judgment & insight - Neurologic Neurologic: CNII-XII intact, moves all extremities Plan Activity: advance as tolerated Weight Bearing Status: Weight Bear as Tolerated Diet: renal Additional Instructions: f/u @ HIV clinic for f/u and refil Follow up with: PRIMARY CARE, [Primary Care Provider] - 3-5 Days Prescriptions: traMADol [Ultram 50 MG tab] 50 mg PO Q6HR PRN #7 tablet PRN Reason: Pain
[2018-05-25] MEDS ORDERED: NACL 0.9% 100 ML IV PRN (15:31)
[2018-05-25 20:09] VITALS: BP 128/72
== END 2018-05-25 20:18 | disposition home or self-care (01) | DRG 291 ==
LOC: ED 05:32 → 3A 08:05
PROVIDERS: ADMIT Internal Medicine; ATTEND Internal Medicine
PROC: 5A1D70Z Performance of Urinary Filtration, Intermittent, Less than 6 Hours Per Day (ICD-10-PCS; principal; 2018-05-23)
PROC: 5A1D70Z Performance of Urinary Filtration, Intermittent, Less than 6 Hours Per Day (ICD-10-PCS; 2018-05-24)
PROC: 5A1D70Z Performance of Urinary Filtration, Intermittent, Less than 6 Hours Per Day (ICD-10-PCS; 2018-05-25)
DX: I13.2 Hypertensive heart and chronic kidney disease with heart failure and with stage 5 chronic kidney disease, or end stage renal disease (principal); J18.9 Pneumonia, unspecified organism; J96.01 Acute respiratory failure with hypoxia; N18.6 End stage renal disease; I16.0 Hypertensive urgency; F17.210 Nicotine dependence, cigarettes, uncomplicated; D63.1 Anemia in chronic kidney disease; F14.20 Cocaine dependence, uncomplicated; Z21 Asymptomatic human immunodeficiency virus [HIV] infection status; Z99.2 Dependence on renal dialysis; Z79.899 Other long term (current) drug therapy
CPT/HCPCS: 36415; 71046; 80048; 80307; 82140; 83735; 83880; 85007; 85025; 85610; 85730; 87040; 87400; 93005; 93010; 96374; G0378; J0360; J0696; J1644; J2270; J3370; J7030; J7050

== ENCOUNTER 2018-07-23 18:10 | Emergency (ER) | payer MEDICAID ==
--- NOTE | 2018-07-23 18:43 | Emergency Department Report ---
Blank Doc - Documentation Documentation: This is a 43 y.o. male with rectal pain x 3 days. Patient reports constipation x 3 days with straining. Fast track for further evaluation.
[2018-07-23] MEDS ORDERED: TYLENOL ONE (20:17)
[2018-07-23] MEDS ORDERED: ZOFRAN IM ONE (20:34)
[2018-07-23] MEDS ORDERED: MORPHINE IM ONE (20:34)
--- NOTE | 2018-07-23 20:37 | Emergency Department Report ---
ED General Adult HPI - General Chief complaint: Rectal Pain Stated complaint: CONSTIPATION Time Seen by Provider: 07/23/18 18:37 Source: patient Mode of arrival: Ambulatory Limitations: No Limitations - History of Present Illness Initial comments: Patient is 43 years old male with history of end-stage renal disease on hemodialysis. Patient had dialysis today. Patient presented to the ER complaining of rectal pain after straining from constipation. Patient stated that he did not have any bowel movement for the last 3 days and we had one today was very hard. Patient denied any rectal bleeding or abdominal pain. Patient denied any fever, nausea or vomiting. Severity scale (0 -10): 10 - Related Data Home Medications Medication Instructions Recorded Confirmed Last Taken lamiVUDine [Lamivudine] 75 mg PO QDAY 04/24/18 05/23/18 Unknown Previous Rx's Medication Instructions Recorded Last Taken Type Lisinopril [Zestril TAB] 40 mg PO QDAY #90 tablet 03/28/18 Unknown Rx NIFEdipine XL [Procardia Xl] 60 mg PO Q12HR #60 tablet 03/28/18 Unknown Rx QUEtiapine [SEROquel] 50 mg PO QHS #60 tablet 03/28/18 Unknown Rx Abacavir [Ziagen TAB] 600 mg PO DAILY #30 tablet 05/25/18 Unknown Rx Dolutegravir Sodium [Tivicay] 50 mg PO QDAY #30 tablet 05/25/18 Unknown Rx traMADol [Ultram 50 MG tab] 50 mg PO Q6HR PRN #7 tablet 05/25/18 Unknown Rx Allergies Allergy/AdvReac Type Severity Reaction Status Date / Time No Known Allergies Allergy Verified 03/05/18 01:31 ED Review of Systems ROS: Stated complaint: CONSTIPATION Other details as noted in HPI Comment: All other systems reviewed and negative Constitutional: denies: chills, fever Respiratory: denies: cough, orthopnea, shortness of breath, SOB with exertion, wheezing Cardiovascular: denies: chest pain, palpitations Gastrointestinal: constipation. denies: abdominal pain, nausea, vomiting Musculoskeletal: denies: back pain ED Past Medical Hx - Past Medical History Previous Medical History?: Yes Hx Hypertension: Yes Hx Congestive Heart Failure: Yes Hx Diabetes: No Hx Renal Disease: Yes (HD Tues, Thurs, Sat HD) Hx Asthma: No Hx COPD: No Hx HIV: Yes Additional medical history: Dialysis access Left chest wall, - Surgical History Past Surgical History?: Yes Additional Surgical History: Dialysis Access Left Chest Wall, Fistula to left arm(not working) - Social History Smoking Status: Current Every Day Smoker Substance Use Type: None - Medications Home Medications: Home Medications Medication Instructions Recorded Confirmed Last Taken Type Lisinopril [Zestril TAB] 40 mg PO QDAY #90 tablet 03/28/18 05/23/18 Unknown Rx NIFEdipine XL [Procardia Xl] 60 mg PO Q12HR #60 tablet 03/28/18 05/23/18 Unknown Rx QUEtiapine [SEROquel] 50 mg PO QHS #60 tablet 03/28/18 05/23/18 Unknown Rx lamiVUDine [Lamivudine] 75 mg PO QDAY 04/24/18 05/23/18 Unknown History Abacavir [Ziagen TAB] 600 mg PO DAILY #30 tablet 05/25/18 Unknown Rx Dolutegravir Sodium [Tivicay] 50 mg PO QDAY #30 tablet 05/25/18 Unknown Rx traMADol [Ultram 50 MG tab] 50 mg PO Q6HR PRN #7 tablet 05/25/18 Unknown Rx ED Physical Exam - General Limitations: No Limitations General appearance: alert, in no apparent distress - Head Head exam: Present: atraumatic, normocephalic, normal inspection - Eye Eye exam: Present: normal appearance - ENT ENT exam: Present: normal exam - Neck Neck exam: Present: normal inspection - Respiratory Respiratory exam: Present: normal lung sounds bilaterally - Cardiovascular Cardiovascular Exam: Present: regular rate, normal heart sounds - GI/Abdominal GI/Abdominal exam: Present: soft, normal bowel sounds. Absent: distended, tenderness, guarding, rebound, rigid - Rectal Rectal exam: Present: normal inspection, normal rectal tone, heme (-) stool, tenderness. Absent: black stool, bloody stool, fecal impaction, hemorrhoids, mass - Extremities Exam Extremities exam: Present: normal inspection, full ROM - Neurological Exam Neurological exam: Present: alert, oriented X3, CN II-XII intact - Psychiatric Psychiatric exam: Present: normal mood - Skin Skin exam: Present: warm, intact, normal color ED Course Vital Signs 07/23/18 18:38 Temperature 98.3 F Pulse Rate 120 H Respiratory 18 Rate Blood Pressure 151/95 O2 Sat by Pulse 97 Oximetry ED Medical Decision Making - Lab Data Result diagrams: 07/23/18 20:53 07/23/18 20:53 - Radiology Data Radiology results: image reviewed interpreted by me: x-ray abdomen showed fecal retention Critical care attestation.: If time is entered above; I have spent that time in minutes in the direct care of this critically ill patient, excluding procedure time. ED Disposition Clinical Impression: ESRD (end stage renal disease), Rectal pain, Constipation Disposition: TO HOME OR SELFCARE Is pt being admited?: No Condition: Stable Instructions: Chronic Kidney Disease (ED), High Fiber Diet (ED), Constipation (ED) Referrals: GUERA DYKES MD [Primary Care Provider] - 3-5 Days
[2018-07-23 21:20] LABS: Basophils % (Auto) 0.4 % (0.0-1.8); Eosinophils % (Auto) 0.2 % (0.0-4.3); Hematocrit 28.2 % (35.5-45.6); Hemoglobin 9.4 gm/dl (11.8-15.2); Lymphocytes # (Auto) 0.7 K/mm3 (1.2-5.4); Lymphocytes % (Auto) 13.9 % (13.4-35.0); Mean Corpuscular HGB Conc 33 % (32-34); Mean Corpuscular Volume 82 fl (84-94); Monocytes # (Auto) 0.4 K/mm3 (0.0-0.8); Monocytes % (Auto) 8.2 % (0.0-7.3); Platelet Count 180 K/mm3 (140-440); Red Blood Count 3.45 M/mm3 (3.65-5.03)
[2018-07-23 21:27] LABS: Red Cell Distribution Width 21.6 % (13.2-15.2)
[2018-07-23 21:35] LABS: Calcium 8.6 mg/dL (8.4-10.2)
[2018-07-23 22:58] VITALS: BP 158/96
--- NOTE | 2018-07-23 23:15 | XRay Report ---
PROCEDURE: XR ABD SERIES W CXR 1V TECHNIQUE: PA view of the chest was obtained as well as flat and upright view of the abdomen. HISTORY: abdominal pain COMPARISONS: Prior chest x-ray 05/23/2018 FINDINGS: There is a central venous line in place entering from the left. This is seen on the prior study. Tip of the catheter projects over the region of the SVC and right atrium. No evidence of pneumothorax. He art size mildly enlarged. Pulmonary vasculature is not significantly distended. No evidence of pulmon regan edema or pleural effusion. No infiltrates or masses are seen. Moderate amount of stool seen throughout the colon. I do not see evidence of bowel obstruction or megan e intraperitoneal gas. No abnormal masses are identified. No acute bone abnormalities are seen. IMPRESSION: Stool pattern as described. The patient may be constipated. Abdomen is otherwise unremarkable. Central venous line unchanged. Mild cardiomegaly.. This document is electronically signed by Lc Foley MD., July 23 2018 11:12:48 PM ET
== END 2018-07-23 23:14 | disposition home or self-care (01) ==
LOC: ED 18:10
DX: K62.89 Other specified diseases of anus and rectum (principal); K59.00 Constipation, unspecified; I13.2 Hypertensive heart and chronic kidney disease with heart failure and with stage 5 chronic kidney disease, or end stage renal disease; N18.6 End stage renal disease; Z99.2 Dependence on renal dialysis; Z21 Asymptomatic human immunodeficiency virus [HIV] infection status; F17.200 Nicotine dependence, unspecified, uncomplicated
CPT/HCPCS: 36415; 74022; 80048; 85025; 96372; 99284; J2270; J2405

== ENCOUNTER 2018-10-09 04:54 | Inpatient (IN) | payer MEDICAID ==
[2018-10-09 06:05] LABS: Basophils % (Auto) 0.2 % (0.0-1.8); Eosinophils # (Auto) 0.1 K/mm3 (0.0-0.4); Eosinophils % (Auto) 1.9 % (0.0-4.3); Hematocrit 37.1 % (35.5-45.6); Hemoglobin 11.9 gm/dl (11.8-15.2); Lymphocytes % (Auto) 21.4 % (13.4-35.0); Mean Corpuscular HGB Conc 32 % (32-34); Mean Corpuscular Volume 87 fl (84-94); Monocytes # (Auto) 0.6 K/mm3 (0.0-0.8); Monocytes % (Auto) 12.7 % (0.0-7.3); Platelet Count 173 K/mm3 (140-440); Red Blood Count 4.27 M/mm3 (3.65-5.03)
[2018-10-09 06:07] LABS: Red Cell Distribution Width 21.9 % (13.2-15.2)
[2018-10-09 06:33] LABS: Calcium 8.9 mg/dL (8.4-10.2)
[2018-10-09] MEDS ORDERED: ACTICIN TP ONE (06:54)
--- NOTE | 2018-10-09 07:05 | Emergency Department Report ---
HPI - General Chief Complaint: Psych Time Seen by Provider: 10/09/18 06:47 - HPI HPI: Room 12 The patient is a 43-year-old male presenting with chief complaint of "fearing for my life." The patient states he has bugs eating him for the past 5 hours. The patient changed to pick at his skin and scratch. The patient appears anxious. The patient states she has not received dialysis in 5 days but will not state why Location: Skin Duration: 5 hours Quality: Pruritic Severity: [See above] Modifying factors: [see above] Context: [see above] Mode of transportation: [not driving] ED Past Medical Hx - Past Medical History Previous Medical History?: Yes Hx Hypertension: Yes Hx Congestive Heart Failure: Yes Hx Renal Disease: Yes (HD Tues, Thurs, Sat HD) Hx HIV: Yes Additional medical history: Dialysis access Left chest wall, - Surgical History Past Surgical History?: Yes Additional Surgical History: Dialysis Access Left Chest Wall, Fistula to left arm(not working) - Family History Family history: no significant - Social History Smoking Status: Never Smoker Substance Use Type: None - Medications Home Medications: Home Medications Medication Instructions Recorded Confirmed Last Taken Type Lisinopril [Zestril TAB] 40 mg PO QDAY #90 tablet 03/28/18 05/23/18 Unknown Rx NIFEdipine XL [Procardia Xl] 60 mg PO Q12HR #60 tablet 03/28/18 05/23/18 Unknown Rx QUEtiapine [SEROquel] 50 mg PO QHS #60 tablet 03/28/18 05/23/18 Unknown Rx lamiVUDine [Lamivudine] 75 mg PO QDAY 04/24/18 05/23/18 Unknown History Abacavir [Ziagen TAB] 600 mg PO DAILY #30 tablet 05/25/18 Unknown Rx Dolutegravir Sodium [Tivicay] 50 mg PO QDAY #30 tablet 05/25/18 Unknown Rx traMADol [Ultram 50 MG tab] 50 mg PO Q6HR PRN #7 tablet 05/25/18 Unknown Rx Docusate Sodium [Colace] 100 mg PO BID PRN #60 capsule 07/23/18 Unknown Rx Lactulose 10 gm PO DAILY PRN #150 ml 07/23/18 Unknown Rx Sodium Phosphate,[place]-Dibasic 118 ml RC ONCE #1 enema 07/23/18 Unknown Rx [Fleet Enema] ED Review of Systems ROS: Stated complaint: HALLUCINATIONS Other details as noted in HPI Constitutional: no symptoms reported Eyes: denies: eye pain ENT: denies: throat pain Respiratory: no symptoms reported Cardiovascular: denies: chest pain Endocrine: no symptoms reported Gastrointestinal: denies: abdominal pain Genitourinary: denies: dysuria Skin: pruritus Neurological: denies: headache Psychiatric: visual hallucinations Physical Exam - Physical Exam Vital Signs: Vital Signs 10/09/18 05:44 Temperature 97.8 F Pulse Rate 102 H Respiratory 20 Rate Blood Pressure 160/112 [Right] O2 Sat by Pulse 96 Oximetry Physical Exam: GENERAL: The patient is well-developed well-nourished sitting on chair picking at skin HEENT: Normocephalic. Atraumatic. Extraocular motions are intact. Patient has moist mucous membranes. NECK: Supple. Trachea midline CHEST/LUNGS: Clear to auscultation. There is no respiratory distress noted. HEART/CARDIOVASCULAR: Regular. There is no tachycardia. There is no gallop rub or murmur. ABDOMEN: Abdomen is soft, nontender. Patient has normal bowel sounds. There is no abdominal distention. SKIN: There are no insects seen on the skin. There is no diaphoresis. NEURO: The patient is awake, alert, and oriented. The patient is cooperative. The patient has no focal neurologic deficits. The patient has normal speech and gait. MUSCULOSKELETAL: There is no evidence of acute injury. ED Course Vital Signs 10/09/18 05:44 Temperature 97.8 F Pulse Rate 102 H Respiratory 20 Rate Blood Pressure 160/112 [Right] O2 Sat by Pulse 96 Oximetry - Consultations Consultation #1: 10/09/18 07:05 Nephrology paged 10/09/18 07:[address] Adler. Will arrange for hemodialysis ED Medical Decision Making - Lab Data Result diagrams: 10/09/18 05:38 10/09/18 05:38 Laboratory Tests 10/09/18 10/09/18 10/09/18 05:38 05:38 05:38 WBC RBC Hgb Hct MCV MCH MCHC RDW Plt Count Lymph % (Auto) [place]berry % (Auto) Eos % (Auto) Baso % (Auto) Lymph # [place] # Eos # Baso # Seg Neutrophils % Seg Neutrophils # Sodium 137 Potassium 5.3 H Chloride 93.6 L Carbon Dioxide 15 L Anion Gap 34 BUN 104 H Creatinine 18.9 H Estimated GFR 3 BUN/Creatinine Ratio 6 Glucose 75 Calcium 8.9 Salicylates < 0.3 L Acetaminophen < 5.0 L Plasma/Serum Alcohol 10/09/18 10/09/18 05:38 05:38 WBC 4.6 RBC 4.27 Hgb 11.9 Hct 37.1 MCV 87 MCH 28 MCHC 32 RDW 21.9 H Plt Count 173 Lymph % (Auto) 21.4 Newberry % (Auto) 12.7 H Eos % (Auto) 1.9 Baso % (Auto) 0.2 Lymph # 1.0 L [place]berry # 0.6 Eos # 0.1 Baso # 0.0 Seg Neutrophils % 63.8 Seg Neutrophils # 3.0 Sodium Potassium Chloride Carbon Dioxide Anion Gap BUN Creatinine Estimated GFR BUN/Creatinine Ratio Glucose Calcium Salicylates Acetaminophen Plasma/Serum Alcohol < 0.01 - Differential Diagnosis schizophrenia, formication, scabies Critical care attestation.: If time is entered above; I have spent that time in minutes in the direct care of this critically ill patient, excluding procedure time. ED Disposition Clinical Impression: Hyperkalemia, Uremia, ESRD needing dialysis Disposition: OP ADMIT IP TO THIS HOSP Is pt being admited?: Yes Does the pt Need Aspirin: Yes Condition: Fair Referrals: ASHWIN MARSHALL [Other] - 3-5 Days Time of Disposition: 07:22 (hospitalist paged)
[2018-10-09] MEDS ORDERED: NACL 0.9% 100 ML IV PRN (07:35)
[2018-10-09] MEDS ORDERED: BENADRYL IV ONE (10:17)
[2018-10-09] MEDS ORDERED: ULTRAM PO PRN (10:22)
[2018-10-09] MEDS ORDERED: COLACE PO PRN (10:22)
--- NOTE | 2018-10-09 10:22 | Consultation ---
History of Present Illness - Reason for Consult Consult date: 10/09/18 end stage renal disease - History of Present Illness 43-year-old very anxious -[place] male with past medical history of end- stage renal disease in the setting of hypertension and HIV, with an unknown CD4 count, presented to the emergency department complaining of itching. He was very anxious parent emergency room notes and did not clarify a lot of the reason he was here in the hospital. He typically dialyzes at [facility]. Missed his Last scheduled hemodialysis session on Sunday per patient. He dialyzes on a Sunday outpatient schedule. Transfer Controller consult for chronic hemodialysis needs. Labs indicated that his potassium was slightly elevated this morning. Past History Past Medical History: dialysis, ESRD, HIV/AIDS, hypertension, renal failure Social history: no significant social history Medications and Allergies Allergies Allergy/AdvReac Type Severity Reaction Status Date / Time No Known Allergies Allergy Verified 03/05/18 01:31 Home Medications Medication Instructions Recorded Confirmed Last Taken Type Lisinopril [Zestril TAB] 40 mg PO QDAY #90 tablet 03/28/18 10/09/18 Unknown Rx NIFEdipine XL [Procardia Xl] 60 mg PO Q12HR #60 tablet 03/28/18 10/09/18 Unknown Rx QUEtiapine [SEROquel] 50 mg PO QHS #60 tablet 03/28/18 10/09/18 Unknown Rx lamiVUDine [Lamivudine] 75 mg PO QDAY 04/24/18 10/09/18 Unknown History Abacavir [Ziagen TAB] 600 mg PO DAILY #30 tablet 05/25/18 10/09/18 Unknown Rx Dolutegravir Sodium [Tivicay] 50 mg PO QDAY #30 tablet 05/25/18 10/09/18 Unknown Rx traMADol [Ultram 50 MG tab] 50 mg PO Q6HR PRN #7 tablet 05/25/18 10/09/18 Unknown Rx Docusate Sodium [Colace] 100 mg PO BID PRN #60 capsule 07/23/18 10/09/18 Unknown Rx Lactulose 10 gm PO DAILY PRN #150 ml 07/23/18 10/09/18 Unknown Rx Sodium Phosphate,[place]-Dibasic 118 ml RC ONCE #1 enema 07/23/18 10/09/18 Unknown Rx [Fleet Enema] Active Meds: Active Medications Sodium Chloride (Nacl 0.9%) 100 mls @ 999 mls/hr IV TIMUR PRN PRN Reason: Hypotension Review of Systems All systems: negative Integumentary: pruritis Exam - Vital Signs Vital signs: Vital Signs Temp Pulse Resp BP Pulse Ox 97.8 F 102 H 20 160/112 96 10/09/18 05:44 10/09/18 05:44 10/09/18 05:44 10/09/18 05:44 10/09/18 05:44 - General Appearance General appearance: well-nourished, appears stated age, anxious EENT: ATNC, PERRL Neck: Present: neck supple, trachea midline Respiratory: Clear to Ascultation, Normal Exam Heart: regular, S1S2 Gastrointestinal: Present: normal, normoactive bowel sounds Integumentary: no rash, warm and dry Neurologic: no focal deficit Musculoskeletal: Present: other (-edema) Psychiatric: agitated Results - Lab Results 10/09/18 05:38 10/09/18 05:38 Most recent lab results Calcium 8.9 mg/dL (8.4-10.2) 10/09/18 05:38 Assessment and Plan - Patient Problems (1) Hyperkalemia Current Visit: Yes Status: Acute Plan to address problem: In the setting of a missed hemodialysis session on Sunday. Counseled patient importance of compliance with this dialysis schedule. Counseled patient on the importance of maintaining a low potassium diet. Will run patient on a 2K dialysate bath during session today. We'll monitor follow-up labs. (2) ESRD needing dialysis Current Visit: Yes Status: Chronic Plan to address problem: Orders written today for hemodialysis. We'll maintain on a Sunday and patient scheduled for his hemodialysis sessions. (3) Altered mental state Current Visit: No Status: Acute Qualifiers: Altered mental status type: unspecified Qualified Code(s): R41.82 - Altered mental status, unspecified Plan to address problem: Unclear how much different his current mental status is from baseline. He is agitated and anxious this morning. We'll closely monitor (4) HIV (human immunodeficiency virus infection) Current Visit: No Status: Chronic Plan to address problem: Continue current HAART therapy.
[2018-10-09] MEDS ORDERED: HYDROCORTISONE CR TP PRN (10:24)
[2018-10-09] MEDS ORDERED: ATARAX PO PRN (10:24)
--- NOTE | 2018-10-09 10:26 | History and Physical Report ---
History of Present Illness Date of examination: 10/09/18 Date of admission: 10/09/18 07:24 Chief complaint: Generalized itching History of present illness: Note; patient is very poor historian 43 year old -[place]inese male with past medical history significant for end stage renal disease on hemodialysis, schizophrenia, hypertension, HIV on medication, polysubstance abuse presented to the emergency department complaining of generalized itching that started for the last 2-3 days. Patient said he saw a lot of bugs and eggs on his skin which I couldn't see it. Patient said he missed his dialysis yesterday. REVIEW OF SYSTEMS: GENERAL: no weight change, no fatigue, no fever HEAD: no head ache EYES: no blurry vision, no acute visual loss EARS: no hearing loss, no discharge, no earache NOSE: no stuffiness, no sneezing, no discharge MOUTH, THROAT AND NECK: no bleeding gums, no sore throat, no swollen neck CARDIAC: no palpitations, no dyspnea on exertion, no orthopnea, no PND, no edema, no chest pain RESPIRATORY: no shortness of breath, no wheeze, no cough, no sputum, no hemoptysis, no asthma GI: no decreased appetite, no nausea, no vomiting, no dysphagia, no diarrhea, no constipation, no abdominal pain URINARY: no change in frequency, no urgency, no polyuria, no hematuria, no incontinence MUSCULOSKELETAL: no muscle weakness, no pain, no joint stiffness NEUROLOGIC: no loss of sensation/numbness, no tingling, no tremors, no weaknes s/paralysis HEMATOLOGIC: no anemia, no easy bruising SKIN: no rashes ENDOCRINE: no heat/cold intolerance, no polyuria, no polydipsia, no thyroid problems, no diabetes PSYCHIATRIC: no anxiety, no depression, no suicidal ideations Past History Past Medical History: dialysis, ESRD, HIV/AIDS, hypertension, renal failure Past Surgical History: Other (back surgery) Social history: smoking (cigarettes, marijuana, cocaine), full code. denies: alcohol abuse, prescription drug abuse, IV drug use Family history: no significant family history Medications and Allergies Allergies Allergy/AdvReac Type Severity Reaction Status Date / Time No Known Allergies Allergy Verified 03/05/18 01:31 Home Medications Medication Instructions Recorded Confirmed Last Taken Type Lisinopril [Zestril TAB] 40 mg PO QDAY #90 tablet 03/28/18 10/09/18 Unknown Rx NIFEdipine XL [Procardia Xl] 60 mg PO Q12HR #60 tablet 03/28/18 10/09/18 Unknown Rx QUEtiapine [SEROquel] 50 mg PO QHS #60 tablet 03/28/18 10/09/18 Unknown Rx lamiVUDine [Lamivudine] 75 mg PO QDAY 04/24/18 10/09/18 Unknown History Abacavir [Ziagen TAB] 600 mg PO DAILY #30 tablet 05/25/18 10/09/18 Unknown Rx Dolutegravir Sodium [Tivicay] 50 mg PO QDAY #30 tablet 05/25/18 10/09/18 Unknown Rx traMADol [Ultram 50 MG tab] 50 mg PO Q6HR PRN #7 tablet 05/25/18 10/09/18 Unknown Rx Docusate Sodium [Colace] 100 mg PO BID PRN #60 capsule 07/23/18 10/09/18 Unknown Rx Lactulose 10 gm PO DAILY PRN #150 ml 07/23/18 10/09/18 Unknown Rx Sodium Phosphate,[place]-Dibasic 118 ml RC ONCE #1 enema 07/23/18 10/09/18 Unknown Rx [Fleet Enema] Active Meds: Active Medications Abacavir Sulfate (Ziagen) 600 mg PO DAILY MAICO Docusate Sodium (Colace) 100 mg PO BID PRN PRN Reason: Constipation Heparin Sodium (Porcine) (Heparin) 5,000 unit SUB-Q Q8HR MAICO Hydrocortisone Acetate (Hydrocortisone Cr) 1 applic TP Q8H PRN PRN Reason: Skin Irritation Hydroxyzine HCl (Atarax) 25 mg PO Q6H PRN PRN Reason: Itching Sodium Chloride (Nacl 0.9%) 100 mls @ 999 mls/hr IV TIMUR PRN PRN Reason: Hypotension Lamivudine (Epivir) 75 mg PO QDAY MAICO Lisinopril (Zestril) 40 mg PO QDAY MAICO Nifedipine (Procardia Xl) 60 mg PO Q12HR MAICO Quetiapine Fumarate (Seroquel) 50 mg PO QHS MAICO Tramadol HCl (Ultram) 50 mg PO Q6HR PRN PRN Reason: Pain Exam - Physical Exam Narrative exam: Not in cardiopulmonary distress. The patient appeared well nourished and normally developed. Vital signs as documented. Head exam is unremarkable. No scleral icterus . Neck is without jugular venous distension, thyromegaly, or carotid bruits. Lungs are clear to auscultation. Cardiac exam reveals regular rate and Rhythm. First and second heart sounds normal. No murmurs, rubs or gallops. Abdominal exam reveals normal bowel sounds, no masses, no organomegaly and no aortic enlargement. Extremities are nonedematous and both femoral and pedal pulses are normal. INSURANCE BILLING CLERK: Alert and oriented 3. No focal weakness. Skin; excoriation ervin all over. - Constitutional Vitals: Temp Pulse Resp BP Pulse Ox 97.3 F L 76 20 193/131 100 10/09/18 09:43 10/09/18 09:45 10/09/18 09:43 10/09/18 09:45 10/09/18 07:42 Results - Labs CBC & Chem 7: 10/09/18 05:38 10/09/18 05:38 Labs: Laboratory Last Values WBC 4.6 K/mm3 (4.5-11.0) 10/09/18 05:38 RBC 4.27 M/mm3 (3.65-5.03) 10/09/18 05:38 Hgb 11.9 gm/dl (11.8-15.2) 10/09/18 05:38 Hct 37.1 % (35.5-45.6) 10/09/18 05:38 MCV 87 fl (84-94) 10/09/18 05:38 MCH 28 pg (28-32) 10/09/18 05:38 MCHC 32 % (32-34) 10/09/18 05:38 RDW 21.9 % (13.2-15.2) H 10/09/18 05:38 Plt Count 173 K/mm3 (140-440) 10/09/18 05:38 Lymph % (Auto) 21.4 % (13.4-35.0) 10/09/18 05:38 Jay % (Auto) 12.7 % (0.0-7.3) H 10/09/18 05:38 Eos % (Auto) 1.9 % (0.0-4.3) 10/09/18 05:38 Baso % (Auto) 0.2 % (0.0-1.8) 10/09/18 05:38 Lymph # 1.0 K/mm3 (1.2-5.4) L 10/09/18 05:38 Jay # 0.6 K/mm3 (0.0-0.8) 10/09/18 05:38 Eos # 0.1 K/mm3 (0.0-0.4) 10/09/18 05:38 Baso # 0.0 K/mm3 (0.0-0.1) 10/09/18 05:38 Seg Neutrophils % 63.8 % (40.0-70.0) 10/09/18 05:38 Seg Neutrophils # 3.0 K/mm3 (1.8-7.7) 10/09/18 05:38 Sodium 137 mmol/L (137-145) 10/09/18 05:38 Potassium 5.3 mmol/L (3.6-5.0) H 10/09/18 05:38 Chloride 93.6 mmol/L (98-107) L 10/09/18 05:38 Carbon Dioxide 15 mmol/L (22-30) L 10/09/18 05:38 34 mmol/L 10/09/18 05:38 BUN 104 mg/dL (9-20) H 10/09/18 05:38 18.9 mg/dL (0.8-1.5) H 10/09/18 05:38 Estimated GFR 3 ml/min 10/09/18 05:38 6 % 10/09/18 05:38 Glucose 75 mg/dL (75-100) 10/09/18 05:38 Calcium 8.9 mg/dL (8.4-10.2) 10/09/18 05:38 Salicylates < 0.3 mg/dL (2.8-20.0) L 10/09/18 05:38 Acetaminophen < 5.0 ug/mL (10.0-30.0) L 10/09/18 05:38 Plasma/Serum Alcohol < 0.01 % (0-0.07) 10/09/18 05:38 Assessment and Plan Assessment and plan: Generalized itching, could be renal failure versus scabies - Patient is on hydroxyzine - Continue dialysis - ID consulted ESRD on dialysis, missed dialysis - Nephrology consult appreciated Hypertension, uncontrolled - Resume home medications HIV/AIDS - Resume home medications DVT prophylaxis - Heparin Disposition - Continue inpatient care Advance Directives: Yes VTE prophylaxis?: Chemical Plan of care discussed with patient/family: Yes
[2018-10-09] MEDS ORDERED: GEODON IM ONE (14:30)
[2018-10-09] MEDS: TIVICAY PO SCH (15:41)
[2018-10-09] MEDS: PROCARDIA XL PO SCH ×2 (15:41→22:27)
[2018-10-09] MEDS: EPIVIR PO SCH (15:41)
[2018-10-09] MEDS: ZIAGEN PO SCH (15:42)
[2018-10-09] MEDS: HEPARIN SUB-Q SCH ×2 (15:42→22:27)
[2018-10-09] MEDS: ZESTRIL PO SCH (15:42)
[2018-10-09] MEDS ORDERED: WATER FOR INJ Sterile (PF) 10 ML ONE (19:55)
--- NOTE | 2018-10-10 10:14 | Consultation ---
History of Present Illness - Reason for Consult Consult date: 10/10/18 Reason for consult: Mental Health Evaluation Requesting physician: GAURANG MCKEON - Chief Complaint Chief complaint: 'It was the bed bugs" - History of Present Psychiatric Illness 43 y.o. who presented to the ER for bizarre behavior. Psychiatry was consulted to see the patient for acute psychosis. Today the patient was calm and coope rative during the assessment. He stated that his residence at [place] is infested with bed bugs. He stated that this isn't the first time that he has come to the hospital for bed bug infestation. He stated that he missed several days of dialysis because he was experiencing "lots of diarrhea." He stated that he may have been hostile yesterday with staff because he was uncomfortable. He stated that he take Seroquel for sleep. He denies SI/HI's and AVH's. He denies a poor appetite and erratic sleep. He denies recreational drug use and alcohol consumption. Medications and Allergies Allergies Allergy/AdvReac Type Severity Reaction Status Date / Time No Known Allergies Allergy Verified 03/05/18 01:31 Home Medications Medication Instructions Recorded Confirmed Last Taken Type Lisinopril [Zestril TAB] 40 mg PO QDAY #90 tablet 03/28/18 10/09/18 Unknown Rx NIFEdipine XL [Procardia Xl] 60 mg PO Q12HR #60 tablet 03/28/18 10/09/18 Unknown Rx QUEtiapine [SEROquel] 50 mg PO QHS #60 tablet 03/28/18 10/09/18 Unknown Rx lamiVUDine [Lamivudine] 75 mg PO QDAY 04/24/18 10/09/18 Unknown History Abacavir [Ziagen TAB] 600 mg PO DAILY #30 tablet 05/25/18 10/09/18 Unknown Rx Dolutegravir Sodium [Tivicay] 50 mg PO QDAY #30 tablet 05/25/18 10/09/18 Unknown Rx traMADol [Ultram 50 MG tab] 50 mg PO Q6HR PRN #7 tablet 05/25/18 10/09/18 Unknown Rx Docusate Sodium [Colace CAP] 100 mg PO BID PRN #60 capsule 07/23/18 10/09/18 Unknown Rx Lactulose 10 gm PO DAILY PRN #150 ml 07/23/18 10/09/18 Unknown Rx Sodium Phosphate,[place]-Dibasic 118 ml RC ONCE #1 enema 07/23/18 10/09/18 Unknown Rx [Fleet Enema] Hydrocortisone 1% [Hydrocortisone 1 applic TP Q8H PRN #2 tube 10/10/18 Unknown Rx 1% CREAM] Active Meds: Active Medications Abacavir Sulfate (Ziagen) 600 mg PO DAILY [facility] Last Admin: 10/09/18 15:42 Dose: Not Given Documented by: Docusate Sodium (Colace) 100 mg PO BID PRN PRN Reason: Constipation Heparin Sodium (Porcine) (Heparin) 5,000 unit SUB-Q Q8HR [facility] Last Admin: 10/09/18 22:27 Dose: Not Given Documented by: Hydrocortisone Acetate (Hydrocortisone Cr) 1 applic TP Q8H PRN PRN Reason: Skin Irritation Hydroxyzine HCl (Atarax) 25 mg PO Q6H PRN PRN Reason: Itching Sodium Chloride (Nacl 0.9%) 100 mls @ 999 mls/hr IV TIMUR PRN PRN Reason: Hypotension Lamivudine (Epivir) 75 mg PO QDAY [facility] Last Admin: 10/09/18 15:41 Dose: Not Given Documented by: Lisinopril (Zestril) 40 mg PO QDAY [facility] Last Admin: 10/09/18 15:42 Dose: Not Given Documented by: Nifedipine (Procardia Xl) 60 mg PO Q12HR [facility] Last Admin: 10/09/18 22:27 Dose: Not Given Documented by: Quetiapine Fumarate (Seroquel) 50 mg PO QHS [facility] Last Admin: 10/09/18 22:28 Dose: Not Given Documented by: Tramadol HCl (Ultram) 50 mg PO Q6HR PRN PRN Reason: Pain, Moderate (4-6) Past psychiatric history - Past Medical History Past Medical History: ESRD, HIV/AIDS, hypertension Past Surgical History: No surgical history - past Psychiatric treatment and history psychiatric treatment history: Denies a psy hx and a fam psy hx. - Social History Social history: other (Reside at [facility]) Mental Status Exam - Vital signs Last Vital Signs Temp 98.6 F 10/10/18 06:26 Pulse 86 10/10/18 06:26 Resp 20 10/10/18 06:26 BP 145/100 10/10/18 06:26 Pulse Ox 95 05/23/19 06:26 - Exam Narrative exam: MSE: Appearance: calm, cooperative Behavior: regular eye contact Speech: regular rate low tone Mood: "okay" Affect: congruent to mood Thought Process: logical Thought Content: denies SI/HI's and AVH's Motor Activity: sitting up in bed Cognition: A/O x 3 Insight: fair Judgment: fair R Results Result Diagrams: 10/10/18 09:54 10/10/18 09:54 All other labs normal. Assessment and Plan Assessment and plan: Impression: No overt psychosis with the patient. Possibly Delirium when the patient arrived to the ER. Today the patient was calm and cooperative during the assessment. Cr 18.9 Recommendation/Plan: Rescind 1013. Dispo: The patient can follow up with is PCP once discharged. Staffed with Dr Mirza Pak,
--- NOTE | 2018-10-10 10:18 | Progress Note ---
Assessment and Plan - Patient Problems (1) Hyperkalemia Current Visit: Yes Status: Acute Plan to address problem: In the setting of a missed hemodialysis session on Sunday. Counseled patient importance of compliance with this dialysis schedule. (2) ESRD needing dialysis Current Visit: Yes Status: Chronic Plan to address problem: Orders written today for hemodialysis. We'll maintain on a Sunday and patient scheduled for his hemodialysis sessions. (3) Altered mental state Current Visit: No Status: Acute Qualifiers: Qualified Code(s): R41.82 - Altered mental status, unspecified Plan to address problem: Unclear how much different his current mental status is from baseline. He is agitated and anxious this morning. Patient has sitter at bedside. Pending psych evaluation. (4) HIV (human immunodeficiency virus infection) Current Visit: No Status: Chronic Plan to address problem: Continue current HAART therapy. Subjective Date of service: 10/10/18 Interval history: Tolerated HD well. Awaiting psych evaluation. Objective - Vital Signs Vital signs: Vital Signs - 12hr 10/10/18 10/10/18 05:44 06:26 Temperature 98.6 F 98.6 F Pulse Rate 86 Respiratory 20 20 Rate Blood Pressure 145/100 Blood Pressure 145/100 [Right] O2 Sat by Pulse 95 Oximetry - General Appearance General appearance: well-developed, well-nourished, appears stated age, anxious EENT: ATNC, PERRL Neck: no JVD, no thyromegaly Respiratory: Present: Clear to Ascultation, Normal Exam Cardiology: regular, S1S2 Gastrointestinal: normal, normoactive bowel sounds Integumentary: warm and dry Neurologic: no focal deficit, no asterixis, confused Psychiatric: agitated - Lab 10/09/18 05:38 10/09/18 05:38 Most recent lab results Calcium 8.9 mg/dL (8.4-10.2) 10/09/18 05:38 Medications & Allergies - Medications Allergies/Adverse Reactions: Allergies No Known Allergies Allergy (Verified 03/05/18 01:31) Home Medications: Home Medications Medication Instructions Recorded Confirmed Last Taken Type Lisinopril [Zestril TAB] 40 mg PO QDAY #90 tablet 03/28/18 10/09/18 Unknown Rx NIFEdipine XL [Procardia Xl] 60 mg PO Q12HR #60 tablet 03/28/18 10/09/18 Unknown Rx QUEtiapine [SEROquel] 50 mg PO QHS #60 tablet 03/28/18 10/09/18 Unknown Rx lamiVUDine [Lamivudine] 75 mg PO QDAY 04/24/18 10/09/18 Unknown History Abacavir [Ziagen TAB] 600 mg PO DAILY #30 tablet 05/25/18 10/09/18 Unknown Rx Dolutegravir Sodium [Tivicay] 50 mg PO QDAY #30 tablet 05/25/18 10/09/18 Unknown Rx traMADol [Ultram 50 MG tab] 50 mg PO Q6HR PRN #7 tablet 05/25/18 10/09/18 Unknown Rx Docusate Sodium [Colace] 100 mg PO BID PRN #60 capsule 07/23/18 10/09/18 Unknown Rx Lactulose 10 gm PO DAILY PRN #150 ml 07/23/18 10/09/18 Unknown Rx Sodium Phosphate,[place]-Dibasic 118 ml RC ONCE #1 enema 07/23/18 10/09/18 Unknown Rx [Fleet Enema] Active Medications: Generic Name Dose Route Start Last Admin Trade Name Freq PRN Reason Stop Dose Admin Abacavir Sulfate 600 mg 10/09/18 12:00 10/09/18 15:42 Ziagen PO Not Given DAILY [facility] Docusate Sodium 100 mg 10/09/18 10:22 Colace PO BID PRN Constipation Heparin Sodium (Porcine) 5,000 unit 10/09/18 14:00 10/09/18 22:27 Heparin SUB-Q Not Given Q8HR [facility] Hydrocortisone Acetate 1 applic 10/09/18 10:24 Hydrocortisone Cr TP Q8H PRN Skin Irritation Hydroxyzine HCl 25 mg 10/09/18 10:24 Atarax PO Q6H PRN Itching Sodium Chloride 100 mls @ 999 mls/hr 10/09/18 07:35 Nacl 0.9% IV TIMUR PRN Hypotension Lamivudine 75 mg 10/09/18 12:00 10/09/18 15:41 Epivir PO Not Given QDAY [facility] Lisinopril 40 mg 10/09/18 12:00 10/09/18 15:42 Zestril PO Not Given QDAY [facility] Nifedipine 60 mg 10/09/18 12:00 10/09/18 22:27 Procardia Xl PO Not Given Q12HR [facility] Quetiapine Fumarate 50 mg 10/09/18 22:00 10/09/18 22:28 Seroquel PO Not Given QHS [facility] Tramadol HCl 50 mg 10/09/18 10:22 Ultram PO Q6HR PRN Pain, Moderate (4-6)
[2018-10-10 10:37] LABS: Hematocrit 36.9 % (35.5-45.6); Hemoglobin 11.9 gm/dl (11.8-15.2); Mean Corpuscular HGB Conc 32 % (32-34); Mean Corpuscular Volume 86 fl (84-94); Platelet Count 151 K/mm3 (140-440); Red Blood Count 4.29 M/mm3 (3.65-5.03)
[2018-10-10 10:46] LABS: Calcium 8.3 mg/dL (8.4-10.2)
[2018-10-10 10:50] LABS: Red Cell Distribution Width 22.2 % (13.2-15.2)
[2018-10-10] MEDS: PROCARDIA XL PO SCH (11:30)
[2018-10-10] MEDS: ZESTRIL PO SCH (11:32)
[2018-10-10] MEDS: ZIAGEN PO SCH (11:32)
[2018-10-10] MEDS: TIVICAY PO SCH (11:34)
[2018-10-10] MEDS: EPIVIR PO SCH (11:35)
--- NOTE | 2018-10-10 11:42 | Discharge Summary ---
Providers - Providers Date of Admission: 10/09/18 07:24 Attending physician: VALERIE ADAMS MD 10/09/18 07:19 Consult to Physician [CONS] Urgent Comment: Consulting Provider: MARY LOU LAY Physician Instructions: Reason For Exam: hyperkalemia, needs dialysis 10/09/18 11:35 Consult to Physician [CONS] Routine Comment: Consulting Provider: NELSON CAMERON Physician Instructions: Reason For Exam: severe itching with excoriations, r/o Scabies 10/09/18 13:23 Consult to Mental Health [CONS] Routine Reason For Exam: patient is on [address] Place consult to:: mental health Notified:: Phone number called:: [phone] Was contact made?: No Time called:: 14:26 Hospitalization Reason for admission: psychosis, delusions, Itching, dialysis, non compliance Condition: Fair Hospital course: 43 year old -[place] male with past medical history significant for end stage renal disease on hemodialysis, schizophrenia, hypertension, HIV on medication, polysubstance abuse presented to the emergency department complaining of generalized itching that started for the last 2-3 days. Patient said he saw a lot of bugs and eggs on his skin which I couldn't see it. Patient said he missed his dialysis yesterday. Patient was admitted on 1013. Patient UDS was positive for cocaine. patient was admitted to the floor and HD was done, BP meds were resumed and BP controlled. Patient was seen by mental health and rescind 1013. patient's itching is due to uremia. Patient was discharged home. Patient was hemodynamically stable at the time of DC. Disposition: DC-01 TO HOME OR SELFCARE Time spent for discharge: 32 minutes - Discharge Diagnoses (1) Delusion Status: Acute (2) Itching Status: Acute (3) Hyperkalemia Status: Acute (4) Uremia Status: Acute (5) ESRD needing dialysis Status: Chronic (6) HIV (human immunodeficiency virus infection) Status: Chronic (7) Hx of cocaine abuse Status: Chronic (8) Tobacco use Status: Chronic Core Measure Documentation - Palliative Care Palliative Care/ Comfort Measures: Not Applicable - Core Measures Any of the following diagnoses?: none Exam - Physical Exam Narrative exam: Not in cardiopulmonary distress. The patient appeared well nourished and normally developed. Vital signs as documented. Head exam is unremarkable. No scleral icterus . Neck is without jugular venous distension, thyromegaly, or carotid bruits. Lungs are clear to auscultation. Cardiac exam reveals regular rate and Rhythm. First and second heart sounds normal. No murmurs, rubs or gallops. Abdominal exam reveals normal bowel sounds, no masses, no organomegaly and no aortic enlargement. Extremities are nonedematous and both femoral and pedal pulses are normal. 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 No focal weakness. Skin; excoriation ervin all over. - Constitutional Vitals: Temp Pulse Resp BP Pulse Ox 98.6 F 86 20 145/100 95 10/10/18 06:26 10/10/18 06:26 10/10/18 06:26 10/10/18 06:26 10/10/18 06:26 Plan Activity: no restrictions Weight Bearing Status: Full Weight Bearing Diet: low salt, renal Follow up with: ASHWIN MARSHALL [Other] - 3-5 Days Prescriptions: Hydrocortisone 1% [Hydrocortisone 1% CREAM] 1 applic TP Q8H PRN #2 tube PRN Reason: Skin Irritation
[2018-10-10 11:43] VITALS: BP 189/116
[2018-10-10 13:11] LABS: Basophils % (Manual) 0 % (0.0-1.8); Eosinophils % (Manual) 0 % (0.0-4.3); Total Cells Counted 100
[2018-10-10 13:12] LABS: Anisocytosis Few; Platelet Estimate Consistent w Auto
== END 2018-10-10 18:15 | disposition home or self-care (01) | DRG 91 ==
LOC: ED 04:54 → EEVIPCON 04:54 → 3A 07:24
PROVIDERS: ADMIT Internal Medicine; ATTEND Internal Medicine
PROC: 5A1D70Z Performance of Urinary Filtration, Intermittent, Less than 6 Hours Per Day (ICD-10-PCS; principal; 2018-10-09)
DX: G92 Toxic encephalopathy (principal); B20 Human immunodeficiency virus [HIV] disease; N18.6 End stage renal disease; I13.2 Hypertensive heart and chronic kidney disease with heart failure and with stage 5 chronic kidney disease, or end stage renal disease; F20.9 Schizophrenia, unspecified; F12.10 Cannabis abuse, uncomplicated; I50.9 Heart failure, unspecified; F22 Delusional disorders; L29.9 Pruritus, unspecified; F14.10 Cocaine abuse, uncomplicated; F17.210 Nicotine dependence, cigarettes, uncomplicated; E87.5 Hyperkalemia; Z99.2 Dependence on renal dialysis; Z79.899 Other long term (current) drug therapy; Z71.51 Drug abuse counseling and surveillance of drug abuser; Z71.6 Tobacco abuse counseling
CPT/HCPCS: 36415; 80048; 80320; 85007; 85025; G0378; A6250; G0480; J1200; J3486